=== PATIENT | male | born 1940 | race Caucasian/White ===

== ENCOUNTER → 2016-10-22 | Outpatient (REF) | payer MEDICARE ==
[~2016-10-22] MED LIST: /PANT40TA PO; ASPI81TA83 PO; LISI10TA4 PO; METOPROLOL TARTRATE PO; MULTIVIT PO; RANI150C PO; SIMV40TA2 PO
[2016-10-22 16:14] LABS: ALBUMIN 3.9 GM/DL (3.2-5.2); ALBUMIN/GLOBULIN RATIO 1.08 (1.00-1.93); BILIRUBIN,TOTAL 0.3 MG/DL (0.2-1.0); CALCIUM LEVEL 9.2 MG/DL (8.8-10.2); CREATININE FOR GFR 1.86 MG/DL (0.70-1.30); GLOMERULAR FILTRATION RATE 37.7 (>42); POTASSIUM SERUM 4.7 MEQ/L (3.5-5.1); TOTAL PROTEIN 7.5 GM/DL (6.4-8.2)
== END ==
LOC: M SFHCLACO 15:01
PROVIDERS: ATTEND Physician Assistant
DX: E11.9 Type 2 diabetes mellitus without complications (principal); I10 Essential (primary) hypertension; E78.2 Mixed hyperlipidemia

== ENCOUNTER → 2017-02-02 | Outpatient (REF) | payer MEDICARE ==
[2017-02-02 15:22] LABS: ALBUMIN 3.9 GM/DL (3.2-5.2); ALBUMIN/GLOBULIN RATIO 1.15 (1.00-1.93); BILIRUBIN,TOTAL 0.5 MG/DL (0.2-1.0); CALCIUM LEVEL 9.2 MG/DL (8.8-10.2); CREATININE FOR GFR 1.73 MG/DL (0.70-1.30); POTASSIUM SERUM 4.9 MEQ/L (3.5-5.1); TOTAL PROTEIN 7.3 GM/DL (6.4-8.2)
== END ==
LOC: M SFHCLACO 07:50
PROVIDERS: ATTEND Physician Assistant
DX: E78.2 Mixed hyperlipidemia (principal); E55.9 Vitamin D deficiency, unspecified; E11.22 Type 2 diabetes mellitus with diabetic chronic kidney disease; I12.9 Hypertensive chronic kidney disease with stage 1 through stage 4 chronic kidney disease, or unspecified chronic kidney disease; N18.3 Chronic kidney disease, stage 3 (moderate)

== ENCOUNTER → 2017-05-04 | Outpatient (REF) | payer MEDICARE ==
[~2017-05-04] MED LIST changes: +CIPR-249 PO; +DIGO0.12 PO; +FENO150C PO; +FLAG500T PO; +GLIM4TAB PO; +SITA50TAB PO
[2017-05-04 16:06] LABS: ALBUMIN 3.7 GM/DL (3.2-5.2); ALBUMIN/GLOBULIN RATIO 1.06 (1.00-1.93); BILIRUBIN,TOTAL 0.4 MG/DL (0.2-1.0); CALCIUM LEVEL 9.5 MG/DL (8.8-10.2); CREATININE FOR GFR 1.78 MG/DL (0.70-1.30); GLOMERULAR FILTRATION RATE 39.7 (>42); TOTAL PROTEIN 7.2 GM/DL (6.4-8.2)
== END ==
LOC: M SFHCLACO 07:47
PROVIDERS: ATTEND Physician Assistant
DX: I10 Essential (primary) hypertension (principal); E78.2 Mixed hyperlipidemia; E11.22 Type 2 diabetes mellitus with diabetic chronic kidney disease; E55.9 Vitamin D deficiency, unspecified

== ENCOUNTER → 2017-06-28 | Outpatient (CLI) | payer MEDICARE ==
--- NOTE | 2017-06-28 10:56 | REP ---
Supine abdomen two views: Comparison is 02/01/2014. The bowel gas pattern is normal. There are calcifications inferiorly in the pelvis on the left, unchanged, likely phleboliths. Skeletal structures and soft tissues are unremarkable. Impression: Normal bowel gas pattern. Signed by Neo Field MD 06/28/2017 10:48 A
[2017-06-28 13:08] LABS: WHITE BLOOD COUNT 11.6 10^3/uL (4.0-10.0)
[2017-06-28 13:09] LABS: BASO % 0.1 % (0.0-1.0); EOS # 0.1 10^3/uL (0.0-0.50); EOS % 0.6 % (0.0-3.0); IMMATURE GRANULOCYTE % 0.5 % (0-0); LYMPH # 2.4 10^3/uL (1.5-4.5); LYMPH % 20.8 % (24.0-44.0); MEAN CORPUSCULAR HEMOGLOBIN 31.7 pg (27.0-33.0); MEAN CORPUSCULAR HGB CONC 32.3 g/dl (32.0-36.5); MEAN CORPUSCULAR VOLUME 98.2 fl (80.0-96.0); MONO # 1.2 10^3/uL (0.0-0.8); MONO % 9.9 % (0.0-5.0); NEUTROPHILS # 7.9 10^3/uL (1.8-7.7); NEUTROPHILS % 68.1 % (36.0-66.0); PLATELET COUNT, AUTOMATED 234 10^3/uL (150-450); RED CELL DISTRIBUTION WIDTH 14.4 % (11.5-14.5)
[2017-06-28 13:24] LABS: ALBUMIN 3.3 GM/DL (3.2-5.2); ALBUMIN/GLOBULIN RATIO 0.92 (1.00-1.93); BILIRUBIN,TOTAL 0.6 MG/DL (0.2-1.0); CREATININE FOR GFR 1.83 MG/DL (0.70-1.30); GLOMERULAR FILTRATION RATE 38.3 (>42); POTASSIUM SERUM 4.5 MEQ/L (3.5-5.1); TOTAL PROTEIN 6.9 GM/DL (6.4-8.2)
== END ==
LOC: M ADAMS 10:18
PROVIDERS: ATTEND Physician Assistant
DX: R10.30 Lower abdominal pain, unspecified (principal)

== ENCOUNTER → 2017-08-03 | Outpatient (REF) | payer MEDICARE ==
[2017-08-03 15:03] LABS: ALBUMIN 3.6 GM/DL (3.2-5.2); ALBUMIN/GLOBULIN RATIO 1.03 (1.00-1.93); BILIRUBIN,TOTAL 0.3 MG/DL (0.2-1.0); CALCIUM LEVEL 9.2 MG/DL (8.8-10.2); CREATININE FOR GFR 1.64 MG/DL (0.70-1.30); GLOMERULAR FILTRATION RATE 43.5 (>42); TOTAL PROTEIN 7.1 GM/DL (6.4-8.2)
== END ==
LOC: M SFHCLACO 07:48
PROVIDERS: ATTEND Physician Assistant
DX: E11.22 Type 2 diabetes mellitus with diabetic chronic kidney disease (principal); I12.9 Hypertensive chronic kidney disease with stage 1 through stage 4 chronic kidney disease, or unspecified chronic kidney disease; N18.3 Chronic kidney disease, stage 3 (moderate); E78.2 Mixed hyperlipidemia; E55.9 Vitamin D deficiency, unspecified; Z12.5 Encounter for screening for malignant neoplasm of prostate
CPT/HCPCS: 36415; 80053; 80061; 82043; 82306; 83036; G0103

== ENCOUNTER → 2018-02-08 | Outpatient (REF) | payer MEDICARE, MEDICAID ==
[2018-02-08 16:17] LABS: ALBUMIN 3.6 GM/DL (3.2-5.2); ALBUMIN/GLOBULIN RATIO 1.06 (1.00-1.93); ALKALINE PHOSPHATASE 44 U/L (45-117); ALT/SGPT 55 U/L (12-78); ANION GAP 7 MEQ/L (8-16); AST/SGOT 34 U/L (7-37); BILIRUBIN,TOTAL 0.4 MG/DL (0.2-1.0); BLOOD UREA NITROGEN 24 MG/DL (7-18); CARBON DIOXIDE LEVEL 29 MEQ/L (21-32); CHLORIDE LEVEL 104 MEQ/L (98-107); CHOLESTEROL LEVEL 107 MG/DL (<200); CHOLESTEROL RISK RATIO 4.458 (<5); CREATININE FOR GFR 1.62 MG/DL (0.70-1.30); GLOMERULAR FILTRATION RATE 44.1 (>42); GLUCOSE, FASTING 269 MG/DL (70-100); HDL CHOLESTEROL 24 MG/DL (>40); NON-HDL-C 83 MG/DL; POTASSIUM SERUM 4.9 MEQ/L (3.5-5.1); PSA SCREENING 0.59 NG/ML (< 4.0); SODIUM LEVEL 140 MEQ/L (136-145); TRIGLYCERIDES LEVEL 340 MG/DL (<150)
[2018-02-08 16:18] LABS: ESTIMATED AVERAGE GLUCOSE 289 MG/DL (60-110); HEMOGLOBIN A1c 11.7 %
[2018-02-08 16:19] LABS: TOTAL 25(OH) VITAMIN D 30.6 NG/ML (30.0-100.0)
== END ==
LOC: M SFHCLACO 07:48
DX: E78.2 Mixed hyperlipidemia (principal); I12.9 Hypertensive chronic kidney disease with stage 1 through stage 4 chronic kidney disease, or unspecified chronic kidney disease; E55.9 Vitamin D deficiency, unspecified; Z12.5 Encounter for screening for malignant neoplasm of prostate; E11.22 Type 2 diabetes mellitus with diabetic chronic kidney disease; N18.3 Chronic kidney disease, stage 3 (moderate)
CPT/HCPCS: 80053

== ENCOUNTER → 2018-08-12 | Outpatient (REF) | payer MEDICARE, MEDICAID | LOC: M SFHCPLAZ 16:54 | PROVIDERS: ATTEND Dermatology | DX: R21 Rash and other nonspecific skin eruption (principal) | CPT/HCPCS: 11100; 54100; 87529; 87798; 88305; G0463 ==

== ENCOUNTER 2018-10-17 10:21 | Inpatient (IN) | payer MEDICARE, MEDICAID ==
[~2018-10-17] VITALS: Ht 172.7 cm; Wt 93.3 kg
[2018-10-17 11:06] LABS: BASO % 0.4 % (0.0-1.0); EOS # 0.3 10^3/uL (0.0-0.50); EOS % 3.7 % (0.0-3.0); HEMATOCRIT 36.4 % (42.0-52.0); HEMOGLOBIN 11.8 g/dl (13.5-17.5); LYMPH # 3.1 10^3/uL (1.5-4.5); LYMPH % 45.4 % (24.0-44.0); MEAN CORPUSCULAR HEMOGLOBIN 31.9 pg (27.0-33.0); MEAN CORPUSCULAR HGB CONC 32.4 g/dl (32.0-36.5); MEAN CORPUSCULAR VOLUME 98.4 fl (80.0-96.0); MONO # 0.6 10^3/uL (0.0-0.8); NEUTROPHILS # 2.8 10^3/uL (1.8-7.7); NEUTROPHILS % 41.1 % (36.0-66.0); PLATELET COUNT, AUTOMATED 235 10^3/uL (150-450); WHITE BLOOD COUNT 6.8 10^3/uL (4.0-10.0)
[2018-10-17 11:16] LABS: INR 1.08; PROTHROMBIN TIME 14.2 SECONDS (12.1-14.4)
[2018-10-17 11:37] LABS: ALBUMIN 3.6 GM/DL (3.2-5.2); ALT/SGPT 35 U/L (12-78); BILIRUBIN,DIRECT < 0.1 MG/DL (0.0-0.2); BILIRUBIN,TOTAL 0.3 MG/DL (0.2-1.0); BLOOD UREA NITROGEN 32 MG/DL (7-18); CALCIUM LEVEL 9.1 MG/DL (8.8-10.2); CARBON DIOXIDE LEVEL 27 MEQ/L (21-32); CHLORIDE LEVEL 106 MEQ/L (98-107); GLOMERULAR FILTRATION RATE 41.6 (>42); GLUCOSE, FASTING 127 MG/DL (70-100); LIPASE 118 U/L (73-393); POTASSIUM SERUM 4.6 MEQ/L (3.5-5.1); SODIUM LEVEL 139 MEQ/L (136-145); TOTAL PROTEIN 7.4 GM/DL (6.4-8.2)
[2018-10-17] MEDS ORDERED: ASPI1TAB15 PO (11:58)
[2018-10-17] MEDS ORDERED: JANU100T PO (11:58)
[2018-10-17] MEDS ORDERED: FISH1000 PO (11:58)
[2018-10-17] MEDS ORDERED: TRES1INJ SC (11:58)
[2018-10-17] MEDS ORDERED: METO1TAB33 PO (11:58)
[2018-10-17] MEDS ORDERED: FENO160T10 PO (11:58)
[2018-10-17] MEDS ORDERED: ATOR40TA75 PO (11:58)
[2018-10-17] MEDS ORDERED: LISI10TA4 PO (11:58)
[2018-10-17] MEDS ORDERED: PLAV1TAB2 PO (11:58)
[2018-10-17] MEDS ORDERED: RANI150T PO (11:58)
[2018-10-17] MEDS ORDERED: NITR4TASL SL (11:58)
[2018-10-17] MEDS ORDERED: VITMTA PO (11:58)
[2018-10-17] MEDS ORDERED: PANT40TA3 PO (11:58)
[2018-10-17] MEDS ORDERED: NS 1,000 ML IV SCH (15:15)
[2018-10-17] MEDS ORDERED: GLUCOSE 4 GM CHEW TABLET PO PRN (15:30)
[2018-10-17] MEDS ORDERED: DEXTROSE 50% 50 ML SYRINGE IV PRN (15:30)
[2018-10-17] MEDS ORDERED: GLUCAGON FOR INJ 1 MG VIAL (J1610) SC PRN (15:30)
[2018-10-17] MEDS: PANTOPRAZOLE 40MG INJ (PROTONIX) (C9113) IV SCH (15:52)
--- NOTE | 2018-10-17 16:05 | REP ---
CT of the abdomen and pelvis without IV or bowel contrast: Comparison is 06/30/2017. The studies performed for rectal bleeding and lower abdominal pain. The visualized lower lung mejia reveal mild parenchymal scarring in the deep posterior sulci bilaterally, unchanged, but otherwise unremarkable. The unenhanced hepatic parenchyma is unremarkable. The hepato steatosis identified previously is no longer present. The gallbladder, pancreas, spleen and adrenals are unremarkable. The unenhanced kidneys are unremarkable. The abdominal aorta is unremarkable except for calcified atheroma. There is no retroperitoneal adenopathy or mass. There is no bowel distension or obstruction. There are numerous diverticula in the descending colon and sigmoid colon, as previously. There is no pericolonic inflammation or abscess to suggest acute diverticulitis. Pelvis: The appendix is unremarkable. There is no adenopathy or ascites. The bladder is unremarkable. Impression: Diverticulosis without diverticulitis. The previous hepato steatosis is no longer present. No adenopathy, ascites or mass. Electronically Signed by Neo Field MD 10/17/2018 03:56 P
[2018-10-17 17:04] VITALS: BP 132/60
[2018-10-17] MEDS: HumaLOG INSULIN (NovoLOG) PER UNIT SC SCH (17:20)
[2018-10-17] MEDS: D5W/0.45% SODIUM CHLORIDE 1,000 ML IV SCH (17:33)
[2018-10-17] MEDS ORDERED: DIGOXIN 0.125 MG TAB PO SCH (18:30)
--- NOTE | 2018-10-17 19:06 | HPE ---
DATE OF ADMISSION: 10/17/[address] Tracy Hernandez. PRIMARY CARE PROVIDER: Avelina Keith GASTROENTEROLOGY: Dr. Mae SCHOOL NURSE: Dr. Giles in [place] CHIEF COMPLAINT: "Bloody stools." HISTORY OF THE PRESENT ILLNESS: Mr. Perez is a 78-year-old male who presents to the emergency room (ER) with his and granddaughter due to bright red blood per rectum associated with low abdominal pain. For the past week, he states he felt the urge to have a bowel movement but then along with the stool noticed bright red blood in the toilet. He denies any clots. Denies a previous history of any similar episodes. Denies recent changes in medications, sick contacts, recent travel, or recent illnesses. Of note, he is on aspirin and Plavix due to four cardiac stents placed in August of 2017 at [facility]. He states he did have a colonoscopy in 2014 that found diverticulosis and premalignant polyp, and hemorrhoids. He denies any other symptoms. No lightheadedness, shortness of breath, dizziness. Denies any black tarry stools or weight loss. No nausea, vomiting. In the ER, per report, he was guaiac positive and was thereafter admitted for bright red blood per rectum. PAST MEDICAL HISTORY: Hypertension. Coronary artery disease, status post four stents August 2017 at [facility] and triple bypass 20 years ago. Hyperlipidemia. Insulin-dependent diabetes mellitus, type 2. Gastroesophageal reflux disease (GERD). Positive history of Helicobacter (H) pylori. Psoriasis. Chronic anemia. ALLERGIES: NAPROXEN causing nausea, vomiting. SURGICAL HISTORY: Coronary artery bypass graft (CABG) with triple bypass in May of 2000. Colonoscopy in 2011. Four cardiac stents August of 2017. FAMILY HISTORY: Mother of heart disease. Father had heart disease. Both parents had hypertension, diabetes mellitus. Sister had a stroke. There is a family member also with uterine cancer. SOCIAL HISTORY: Quit smoking about 6 years ago. Smoked for 3-4 years. Alcohol - drinks beer occasionally. Illicit substances - denies. HOME MEDICATIONS: - aspirin 81 mg - atorvastatin 40 mg by mouth nightly - Plavix 75 mg by mouth daily - digoxin 125 mcg by mouth nightly - fenofibrate 160 mg by mouth nightly - fish oil 4000 mg by mouth nightly - glimepiride 4 mg by mouth daily - lisinopril 10 mg by mouth daily - metoprolol succinate ER 150 mg by mouth daily - multivitamin one tablet by mouth daily - nitroglycerin 0.4 mg SL nitro as needed - Protonix 40 mg by mouth daily - ranitidine one tablet by mouth twice a day - Januvia 50 mg by mouth daily - Tresiba 24 units subcu daily REVIEW OF SYSTEMS: GENERAL: Denies fever, chills, weight loss, night sweats. HEENT: Denies any headache, blurred vision, eye pain, ear pain, dysphagia, rhinorrhea. CARDIAC: Denies chest pain, palpitations, or chest tightness. LUNGS: Denies any shortness of breath, coughing, wheezing, or sputum. GASTROINTESTINAL(GI): Denies nausea, vomiting, or constipation or diarrhea. Admits to lower abdominal pain as well as bright red blood per rectum for the past week. NEUROLOGIC: Denies any new weaknesses or paresthesias. MUSCULOSKELETAL: Denies any decreased strength. SKIN: Denies any new skin rashes or lesions. PHYSICAL EXAMINATION: VITAL SIGNS: Temperature 98.9, pulse 51, respirations 19, blood pressure 132/60 with a mean arterial pressure (MAP) of 84, pulse oximetry 97% on room air. GENERAL: Resting comfortably in bed. No acute distress. Alert and oriented times three. Pleasantly conversant. HEENT: Normocephalic, atraumatic. Moist mucous membranes. Anicteric sclerae. No appreciable paleness in the conjunctivae. NECK: Supple. No appreciable jugular venous distention (JVD). CARDIAC: Regular rate and rhythm. Bradycardic on exam. Regular rhythm. No appreciable murmurs. Normal S1 and S2. LUNGS: Clear to auscultation bilaterally in all mejia. No wheezing, rhonchi, or rales. Equal chest rise bilaterally. ABDOMEN: Soft, nondistended. There is mild tenderness to bilateral lower quadrants. Normoactive bowel sounds throughout. No organomegaly or masses. Obese. EXTREMITIES: 2+ radial pulses bilaterally and 2+ dorsalis pedis pulses bilaterally. No edema. MUSCULOSKELETAL: Able to move all extremities. NEUROLOGIC: No appreciable deficits. SKIN: No visible lesions. LABORATORY: WBC 6.8, hemoglobin and hematocrit 11.8 and 36.4, platelets 235. Sodium 139, potassium 4.6, BUN and creatinine [address] abdomen and pelvis: Diverticulosis without diverticulitis. Previous hepatosteatosis is no longer present. No adenopathy, ascites or mass. IMPRESSION AND PLAN: 1. Bright red blood per rectum. Likely lower GI bleed. Differential includes diverticular bleed versus arteriovenous malformation (AVM) versus polyps versus malignancy versus peptic ulcer disease. Currently the patient's hemoglobin and hematocrit appear to be around baseline with a hemoglobin ranging from 11 to 12 from previous records. He is asymptomatic. We will make him nothing by mouth (n.p.o.) with Protonix IV and IV fluids while he is nothing by mouth. Hold aspirin and Plavix. CT of the abdomen and pelvis does not reveal any masses or lesions. We will recheck his hemoglobin and hematocrit every 6 hours. Per ER report, he is guaiac positive in the ER. Given that there is no GI manager organizational, surgeon, Dr. Feliciano, has been consulted with plans to scope possibly tomorrow. 2. For the remainder of his chronic medical conditions, we will continue his regular home medications besides replacing his diabetes medications with insulin sliding scale inpatient. Of note, it does appears he does have chronic kidney disease stage III as well. His current BUN and creatinine appear to be around his baseline creatinine of 1.7 to 1.8. After his colonoscopy, consider starting iron supplement or an epo stimulating agent. 3. Deep vein thrombosis (DVT) prophylaxis. Thromboembolism deterrents (TEDs) and sequential compression device (SCDs). Hold anticoagulation given his acute bleed. DISPOSITION: Will admit to the hospitalist service. Check hemoglobin and hematocrit every 6 hours. To be seen by surgery for possible colonoscopy. My faculty preceptor for this patient encounter was physically present during the encounter and was fully available. All aspects of the patient interview, examination, medical decision making process, and medical care plan development were reviewed and approved by the faculty preceptor. The faculty preceptor is aware and concurs with the plan as stated in the body of this note and will attest to such by his/her cosignature. DAVE
[2018-10-17 19:57] LABS: HEMATOCRIT 33.1 % (42.0-52.0); HEMOGLOBIN 10.8 g/dl (13.5-17.5)
[2018-10-17 20:00] VITALS: BP 120/63
[2018-10-17] MEDS: ATORVASTATIN 20 MG TAB PO SCH (20:18)
[2018-10-18] MEDS: D5W/0.45% SODIUM CHLORIDE 1,000 ML IV SCH ×2 (03:30→16:32)
[2018-10-18 04:00] VITALS: BP 116/56
[2018-10-18] MEDS ORDERED: GOLYTELY SOLN 4000 ML BTL PO ONE (05:00)
[2018-10-18] MEDS: HumaLOG INSULIN (NovoLOG) PER UNIT SC SCH ×5 (05:36→19:46)
[2018-10-18 06:16] LABS: HEMATOCRIT 35.1 % (42.0-52.0); HEMOGLOBIN 11.4 g/dl (13.5-17.5); MEAN CORPUSCULAR HEMOGLOBIN 31.7 pg (27.0-33.0); MEAN CORPUSCULAR HGB CONC 32.5 g/dl (32.0-36.5); MEAN CORPUSCULAR VOLUME 97.5 fl (80.0-96.0); PLATELET COUNT, AUTOMATED 202 10^3/uL (150-450); WHITE BLOOD COUNT 6.9 10^3/uL (4.0-10.0)
[2018-10-18 06:35] LABS: CALCIUM LEVEL 8.4 MG/DL (8.8-10.2); CREATININE FOR GFR 1.52 MG/DL (0.70-1.30); GLOMERULAR FILTRATION RATE 47.3 (>42); POTASSIUM SERUM 4.3 MEQ/L (3.5-5.1)
[2018-10-18 08:00] VITALS: BP 138/68
[2018-10-18] MEDS ORDERED: DIGOXIN 0.125 MG TAB PO SCH (09:00)
[2018-10-18] MEDS: METOPROLOL SUCC (TopROL XL) 50MG **XL** TAB PO SCH (09:27)
[2018-10-18] MEDS: MULTIVITAMINS/MINERALS THERAP 1 TAB PO SCH (09:33)
[2018-10-18] MEDS: LISINOPRIL 10 MG TAB PO SCH (09:33)
[2018-10-18] MEDS: PANTOPRAZOLE 40MG INJ (PROTONIX) (C9113) IV SCH (09:33)
[2018-10-18 10:19] LABS: DIGOXIN LEVEL 0.6 NG/ML (0.5-2.0)
[2018-10-18] MEDS: DIGOXIN 0.125 MG TAB PO SCH (11:04)
[2018-10-18 12:00] VITALS: BP 122/68
[2018-10-18 12:38] LABS: HEMATOCRIT 33.9 % (42.0-52.0); HEMOGLOBIN 11.1 g/dl (13.5-17.5)
[2018-10-18] MEDS ORDERED: ePHEDrine SULFATE 25 MG/5 ML(5MG/ML) SYRINGE As Ordered ONE (15:12)
[2018-10-18] MEDS ORDERED: LIDOCAINE 2% INJ 100 MG/5 ML SDV (FOR ANES.) As Ordered ONE (15:13)
[2018-10-18] MEDS ORDERED: PROPOFOL 200 MG/20 ML VIAL As Ordered ONE (15:13)
[2018-10-18] MEDS ORDERED: GLYCOPYRROLATE INJ 0.2 MG/ML 2 ML VIAL As Ordered ONE (15:15)
--- NOTE | 2018-10-18 15:57 | ROOR ---
Patient Name: Bam Perez Procedure Date: 10/18/2018 2:47 PM Date of : 1940 Age: 78 Room: [facility] Gender: Male Note Status: Finalized Procedure: Colonoscopy Indications: Rectal bleeding Providers: Christiano Feliciano MD Referring MD: TEJAS Cochran PA-C Requesting Provider: Medicines: Monitored Anesthesia Care Complications: No immediate complications. Procedure: Pre-Anesthesia Assessment: - Prior to the procedure, a History and Physical was performed, and patient medications and allergies were reviewed. The patient is competent. The risks and benefits of the procedure and the sedation options and risks were discussed with the patient. All questions were answered and informed consent was obtained. Patient identification and proposed procedure were verified by the physician, the nurse and the software licensing specialist in the procedure room. Mental Status Examination: alert and oriented. CV Examination: regular rate and rhythm. Prophylactic Antibiotics: The patient does not require prophylactic antibiotics. Prior Anticoagulants: The patient has taken no previous anticoagulant or antiplatelet agents. ASA Grade Assessment: III - A patient with severe systemic disease. After reviewing the risks and benefits, the patient was deemed in satisfactory condition to undergo the procedure. The anesthesia plan was to use monitored anesthesia care (MAC). Immediately prior to administration of medications, the patient was re-assessed for adequacy to receive sedatives. The heart rate, respiratory rate, oxygen saturations, blood pressure, adequacy of pulmonary ventilation, and response to care were monitored throughout the procedure. The physical status of the patient was re-assessed after the procedure. The Colonoscope was introduced through the anus and advanced to the terminal ileum. The colonoscopy was performed without difficulty. The patient tolerated the procedure well. The quality of the bowel preparation was excellent. Findings: The perianal and digital rectal examinations were normal. A 5 mm polyp was found in the transverse colon. The polyp was sessile. The polyp was removed with a hot snare. Resection and retrieval were complete. Estimated blood loss: none. A 4 mm polyp was found in the descending colon. The polyp was sessile. The polyp was removed with a hot snare. Resection and retrieval were complete. Estimated blood loss: none. Scattered medium-mouthed diverticula were found in the descending colon. Many large-mouthed diverticula were found in the sigmoid colon. Non-bleeding internal hemorrhoids were found. There was no blood in the colon and no obvious source for recent bleeding. Impression: - One 5 mm polyp in the transverse colon, removed with a hot snare. Resected and retrieved. - One 4 mm polyp in the descending colon, removed with a hot snare. Resected and retrieved. - Diverticulosis in the descending colon. - Diverticulosis in the sigmoid colon. - Non-bleeding internal hemorrhoids. Recommendation: - [facility]. - Resume regular diet today. - Continue present medications. - Await pathology results. Christiano Feliciano MD Christiano Feliciano MD 10/18/2018 3:56:57 PM This report has been signed electronically. Number of Addenda: 0 Note Initiated On: 10/18/2018 2:47 PM Estimated Blood Loss: Estimated blood loss: none.
[2018-10-18 16:20] VITALS: BP 148/67
--- NOTE | 2018-10-18 17:04 | IPNPDOC ---
Text Note Date of Service The patient was seen on 10/18/18. NOTE Subjective: Patient is a 78-year-old male with a PMHx of CAD s/p Stent (08/2017) s/p CABG, HTN, DLP, IDDM2, Hx of H. pylori, Chronic anemia, Psoriasis, and GERD who presented to the ER with BRBPR. Patient was on ASA / Plavix for a stent placement on 08/2017. This has been placed on hold since admission. Patient was admitted to the hospitalist service with general surgery on consultation. Patient was seen and examined at the bedside. Currently he is completing a [place] bottle. He denies any chest pain. She is rather palpitations. Still expressing some rectal bleeding. Denies any bone pain, the patient diarrhea, or nausea and vomiting. Objective: Vitals (See below) General: Lying in bed, no acute distress, comfortable, AAOx3 HEENT: NC, AT CVS: RRR, +S1S2 Lungs: Fair air entry b/l, -w/r/r Abdomen: Soft, ND, NT Extremities: - Edema, - Calf tenderness Assessment and plan: BRBPR - likely 2/2 lower GI bleed - likely 2/2 diverticulosis - Clinically remains stable, does present some rectal bleeding - Physical without any abdominal tenderness - Hemoglobin remains stable without any transfusions - CT abdomen / pelvis 10/17: Diverticulosis without diverticulitis. The previous hepato steatosis is no longer present. No adenopathy, ascites or mass. - Will continue to follow hemoglobin every 6 hours - s/p Colonoscopy 10/[address] Feliciano - pathology pending CAD s/p Stent (08/2017) s/p CABG - c/w Digoxin and Atorvastatin HTN - BP well controlled - c/w Lisinopril and Metoprolol DLP - c/w Atorvastatin IDDM2 - c/w ISS Psoriasis GERD / Hx of H. pylori - c/w Protonix DVT prophylaxis - c/w SCDs VS,Fishbone, I+O VS, Fishbone, I+O Laboratory Tests 10/17/18 19:39 10/18/18 06:01 Red Blood Count 3.60 L, Mean Corpuscular Volume 97.5 H, Mean Corpuscular Hemoglobin 31.7, Mean Corpuscular Hemoglobin Concent 32.5, Red Cell Distribution Width 13.2, Calcium Level 8.4 L 10/18/18 12:08 Vital Signs Date Time Temp Pulse Resp B/P (MAP) Pulse Ox O2 Delivery O2 Flow Rate FiO2 10/18/18 16:20 96.7 65 18 148/67 (94) 98 10/18/18 16:05 Room Air I&O- Last 24 Hours up to 6 AM 10/18/18 06:00 Intake Total 150 ml Balance 150 ml SABRINA MUELLER MD Oct 18, 2018 17:04
[2018-10-18 18:02] LABS: HEMOGLOBIN 11.3 g/dl (13.5-17.5)
--- NOTE | 2018-10-18 18:48 | ECGEPIP ---
Stationary ECG Study [facility] - ED Test Date: 2018-10-17 Pat Name: DAMIAN SILVA Department: Room: - Gender: M [employer]: : 1940 Requested By: Sandra Benitez Order Number: [id number] Reading MD: Sandra Benitez Measurements Intervals [place] Rate: 55 P: -5 MA: 168 QRS: 1 QRSD: 143 T: 0 QT: 387 QTc: 370 Interpretive Statements SINUS BRADYCARDIA INTRAVENTRICULAR CONDUCTION DELAY INFERIOR MYOCARDIAL INFARCTION, PROBABLY OLD SIMILAR 06/30/17 Electronically Signed On 10-18-2018 18:48:35 EST by Sandra Benitez
[2018-10-18] MEDS: ATORVASTATIN 20 MG TAB PO SCH (19:44)
[2018-10-18 20:00] VITALS: BP 127/58
[2018-10-18] MEDS ORDERED: RAMELTEON 8 MG TAB (ROZEREM) PO SCH (21:00)
[2018-10-18 23:59] VITALS: BP 111/53
[2018-10-19] VITALS (7 sets, daily range): BP systolic 114–145; BP diastolic 52–98
[2018-10-19 06:12] LABS: HEMATOCRIT 34.1 % (42.0-52.0); HEMOGLOBIN 11.2 g/dl (13.5-17.5); MEAN CORPUSCULAR HGB CONC 32.8 g/dl (32.0-36.5); MEAN CORPUSCULAR VOLUME 97.4 fl (80.0-96.0); PLATELET COUNT, AUTOMATED 195 10^3/uL (150-450); WHITE BLOOD COUNT 8.1 10^3/uL (4.0-10.0)
[2018-10-19 06:38] LABS: CALCIUM LEVEL 8.5 MG/DL (8.8-10.2); CREATININE FOR GFR 1.5 MG/DL (0.70-1.30); GLOMERULAR FILTRATION RATE 48.1 (>42); POTASSIUM SERUM 4.3 MEQ/L (3.5-5.1)
[2018-10-19] MEDS: HumaLOG INSULIN (NovoLOG) PER UNIT SC SCH ×4 (07:30→21:00)
[2018-10-19] MEDS: DIGOXIN 0.125 MG TAB PO SCH (08:22)
[2018-10-19] MEDS: LISINOPRIL 10 MG TAB PO SCH (08:23)
[2018-10-19] MEDS: PANTOPRAZOLE 40MG INJ (PROTONIX) (C9113) IV SCH (08:23)
[2018-10-19] MEDS: METOPROLOL SUCC (TopROL XL) 50MG **XL** TAB PO SCH (08:23)
[2018-10-19] MEDS: MULTIVITAMINS/MINERALS THERAP 1 TAB PO SCH (08:23)
--- NOTE | 2018-10-19 10:29 | CR ---
DATE OF CONSULTATION: 10/17/2018 REASON FOR CONSULTATION: Lower gastrointestinal bleed. HISTORY OF PRESENT ILLNESS The patient is a 78-year-old man admitted by the hospitalist service on October 17 with a chief complaint of bloody stool. He presented to the emergency department reporting that for about a week he had been having some blood noted in his stool. This was bright red in color. He has not had any prior similar episode. He has had colonoscopies most recently in 2014. He has had several polyps resected and has known diverticulosis and internal hemorrhoids. The patient denied any dizziness or lightheadedness. He has not had any significant abdominal pain by his report. He has not noticed any particular change his bowel habits otherwise. 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 ALLERGIES: The patient apparently has had nausea and vomiting after NAPROXEN. MEDICATIONS: The patient's current medications include: - aspirin 81 mg daily - atorvastatin 40 mg p.o. at bedtime - clopidogrel 75 mg p.o. daily - digoxin 125 mcg p.o. nightly at bedtime - fenofibrate 160 mg p.o. q.h.s. - fish oil 4000 mg p.o. q.h.s. - glimepiride 4 mg p.o. daily - lisinopril 10 mg p.o. daily - metoprolol succinate 150 mg p.o. daily - multivitamin daily - nitroglycerin 0.4 mg sublingually p.r.n. chest pain - pantoprazole 40 mg p.o. daily - ranitidine 150 mg p.o. twice daily - Januvia 50 mg p.o. daily - Tresiba Flex Touch 24 units subcutaneous daily SURGICAL HISTORY: The patient has undergone a coronary artery bypass grafting in 2000. He had a colonoscopy in 2011 and again in 2014. He has had cardiac stents placed in August 2017. MEDICAL HISTORY: Medical history is significant for his coronary artery disease status post bypass and stenting. He has a history of hypertension and hyperlipidemia. He has diabetes mellitus type 2. He has a history of gastroesophageal reflux disease. He has psoriasis and reportedly has a history of chronic anemia. FAMILY HISTORY: Reveals no family history of colorectal cancer. SOCIAL HISTORY: The patient had been a smoker but is now quit for about 6 years. He has an occasional beer. REVIEW OF SYSTEMS: The patient denies any recent chest pain or palpitations. He denies shortness of breath, cough, wheezing or sputum production. He has had no history of deep vein thrombosis (DVT) or pulmonary embolus. Remainder of the review of systems is unrevealing. PHYSICAL EXAMINATION: Physical exam reveals a pleasant, older appearing man lying quietly in bed. He is alert, oriented and cooperative. Heart exam shows a regular rhythm. The lungs are clear. The abdomen is soft and nontender without appreciable mass. Rectal exam is deferred for now. LABORATORY STUDIES: Laboratory studies include a CBC with a hemoglobin of 12, hematocrit of 36 and platelet count of 235,000. White count is 7. Chemistry profile shows normal electrolytes with BUN of 32, creatinine 1.7 and a glucose of 127. Liver function tests are unremarkable. PT and INR are normal. He had a CT scan of his abdomen and pelvis for unclear reasons. This was read as showing some diverticulosis, diverticulitis and no other apparent significant findings. IMPRESSION: 1. Red rectal bleeding of uncertain source. The patient has known diverticulosis and a history of polyps and internal hemorrhoids. PLAN: The patient was counseled for possible colonoscopy. We will try adding him onto the schedule for a colonoscopy on the afternoon of October 18. He will start a bowel prep in the morning but can take some clear liquids overnight.
[2018-10-19] MEDS: ASPIRIN 81 MG ENTERIC TAB PO SCH (12:02)
[2018-10-19] MEDS: CLOPIDOGREL 75 MG TAB PO SCH (12:02)
--- NOTE | 2018-10-19 13:37 | IPNPDOC ---
Text Note Date of Service The patient was seen on 10/19/18. NOTE Subjective: Patient is a 78-year-old male with a PMHx of CAD s/p Stent (08/2017) s/p CABG, HTN, DLP, IDDM2, Hx of H. pylori, Chronic anemia, Psoriasis, and GERD who presented to the ER with BRBPR. Patient was on ASA / Plavix for a stent placement on 08/2017. This has been placed on hold since admission. Patient was admitted to the hospitalist service with general surgery on consultation. Patient was seen and examined at the bedside. Currently notes that he is expressing or rectal bleeding. Denies any chest pain, shortness of breath or palpitations. Denies nausea, vomiting, abdominal pain, constipation or diarrhea. Objective: Vitals (See below) General: Lying in bed, no acute distress, comfortable, AAOx3 HEENT: NC, AT CVS: RRR, +S1S2 Lungs: Fair air entry b/l, auscultation is without any wheezing, rales or rhonchi Abdomen: Soft, ND, non-tender Extremities: No evidence of edema, - Calf tenderness Assessment and plan: BRBPR - likely 2/2 lower GI bleed - likely 2/2 hemorrhoids, possibly 2/2 diverticulosis - Clinically remains stable, does present some rectal bleeding - Physical without any abdominal tenderness - Hemoglobin remains stable without any transfusions - CT abdomen / pelvis 10/17: Diverticulosis without diverticulitis. The previous hepato steatosis is no longer present. No adenopathy, ascites or mass. - s/p Colonoscopy 10/[address] Feliciano - pathology pending - Will resume ASA and Plavix - Will monitor for blood loss, anticipate discharge in 24 hours CAD s/p Stent (08/2017) s/p CABG - c/w Digoxin and Atorvastatin HTN - BP well controlled - c/w Lisinopril and Metoprolol DLP - c/w Atorvastatin - Will resume ASA and Plavix IDDM2 - c/w ISS Psoriasis GERD / Hx of H. pylori - c/w Protonix DVT prophylaxis - c/w SCDs Disposition: - Discharge within 24 hours VS,Fishbone, I+O VS, Fishbone, I+O Laboratory Tests 10/18/18 17:54 10/19/18 05:58 Red Blood Count 3.50 L, Mean Corpuscular Volume 97.4 H, Mean Corpuscular Hemoglobin 32.0, Mean Corpuscular Hemoglobin Concent 32.8, Red Cell Distribution Width 13.2, Calcium Level 8.5 L Vital Signs Date Time Temp Pulse Resp B/P (MAP) Pulse Ox O2 Delivery O2 Flow Rate FiO2 10/19/18 12:00 97.6 67 18 135/63 (87) 97 10/18/18 16:05 Room Air I&O- Last 24 Hours up to 6 AM 10/19/18 06:00 Intake Total 1740 ml Output Total 850 ml Balance 890 ml SABRINA MUELLER MD Oct 19, 2018 13:37
[2018-10-19] MEDS: ATORVASTATIN 20 MG TAB PO SCH (20:17)
[2018-10-20 04:00] VITALS: BP 118/59
[2018-10-20 06:06] LABS: HEMATOCRIT 32.6 % (42.0-52.0); MEAN CORPUSCULAR HEMOGLOBIN 31.9 pg (27.0-33.0); MEAN CORPUSCULAR HGB CONC 33.7 g/dl (32.0-36.5); MEAN CORPUSCULAR VOLUME 94.5 fl (80.0-96.0); PLATELET COUNT, AUTOMATED 198 10^3/uL (150-450); RED BLOOD COUNT 3.45 10^6/uL (4.30-6.10); WHITE BLOOD COUNT 6.9 10^3/uL (4.0-10.0)
[2018-10-20 06:31] LABS: CALCIUM LEVEL 8.3 MG/DL (8.8-10.2); CREATININE FOR GFR 1.52 MG/DL (0.70-1.30); GLOMERULAR FILTRATION RATE 47.3 (>42); POTASSIUM SERUM 4.4 MEQ/L (3.5-5.1)
[2018-10-20 08:00] VITALS: BP 134/60
[2018-10-20] MEDS: PANTOPRAZOLE 40MG INJ (PROTONIX) (C9113) IV SCH (09:28)
[2018-10-20] MEDS: HumaLOG INSULIN (NovoLOG) PER UNIT SC SCH (09:28)
[2018-10-20] MEDS: METOPROLOL SUCC (TopROL XL) 50MG **XL** TAB PO SCH (09:33)
[2018-10-20 09:34] VITALS: BP 134/60
[2018-10-20] MEDS: LISINOPRIL 10 MG TAB PO SCH (09:34)
[2018-10-20] MEDS: ASPIRIN 81 MG ENTERIC TAB PO SCH (09:34)
[2018-10-20] MEDS: CLOPIDOGREL 75 MG TAB PO SCH (09:34)
[2018-10-20] MEDS: MULTIVITAMINS/MINERALS THERAP 1 TAB PO SCH (09:36)
[2018-10-20] MEDS: DIGOXIN 0.125 MG TAB PO SCH (09:37)
--- NOTE | 2018-10-20 14:57 | DS.PDOC ---
Discharge Summary General Date of Admission Oct 17, 2018 at 15:54 Discharge Summary PROCEDURES PERFORMED DURING STAY: [None]. ADMITTING DIAGNOSES / DISCHARGE DIAGNOSES: BRBPR - likely 2/2 lower GI bleed - likely 2/2 hemorrhoids, possibly 2/2 diverticulosis CAD s/p Stent (08/2017) s/p CABG HTN DLP IDDM2 Psoriasis GERD / Hx of H. pylori DVT prophylaxis COMPLICATIONS/CHIEF COMPLAINT: Bright red bleeding per rectum HISTORY OF PRESENT ILLNESS: Patient is a 78-year-old male with a PMHx of CAD s/p Stent (08/2017) s/p CABG, HTN, DLP, IDDM2, Hx of H. pylori, Chronic anemia, Psoriasis, and GERD who presented to the ER with BRBPR. Patient was on ASA / Plavix for a stent placement on 08/2017. This has been placed on hold since admission. Patient was admitted to the hospitalist service with general surgery on consultation. HOSPITAL COURSE: BRBPR - likely 2/2 lower GI bleed - likely 2/2 hemorrhoids, possibly 2/2 diverticulosis - Clinically remains stable, does present some rectal bleeding - Physical without any abdominal tenderness - Hemoglobin remains stable without any transfusions - CT abdomen / pelvis 10/17: Diverticulosis without diverticulitis. The previous hepato steatosis is no longer present. No adenopathy, ascites or mass. - s/p Colonoscopy 10/[address] Feliciano - pathology pending - Has been resumed on aspirin and Plavix. Has not experienced any further bleeding events - We'll have outpatient follow-up with Dr. Feliciano and primary care provider, Alanna Keith CAD s/p Stent (08/2017) s/p CABG - c/w Digoxin and Atorvastatin HTN - BP well controlled - c/w Lisinopril and Metoprolol DLP - c/w Atorvastatin, ASA and Plavix IDDM2 - c/w ISS Psoriasis GERD / Hx of H. pylori - c/w Protonix DVT prophylaxis - c/w SCDs DISCHARGE MEDICATIONS: Please see below. ALLERGIES: Please see below. PHYSICAL EXAMINATION ON DISCHARGE: Vitals (See below) General: Lying in bed, no acute distress, comfortable, AAOx3 HEENT: NC, AT CVS: RRR, +S1S2 Lungs: Fair air entry b/l, auscultation is without any wheezing, rales or rhonchi Abdomen: Soft, ND, non-tender Extremities: No evidence of edema, - Calf tenderness LABORATORY DATA: Please see below. ACTIVITY: [As tolerated]. DISCHARGE PLAN: Follow-up with Dr. Feliciano and Avelina Keith within the next 7 days Remain compliant with treatment plan and medications Return to the ER if you experience any problems DISPOSITION: Home, Self-Care. DISCHARGE CONDITION: [Stable]. TIME SPENT ON DISCHARGE: Greater than [35] minutes. Vital Signs/I&Os Vital Signs Date Time Temp Pulse Resp B/P (MAP) Pulse Ox O2 Delivery O2 Flow Rate FiO2 10/20/18 09:37 59 10/20/18 09:34 134/60 10/20/18 08:00 97.0 20 97 10/18/18 16:05 Room Air I&O- Last 24 Hours up to 6 AM 10/20/18 06:00 Intake Total 720 ml Output Total 250 ml Balance 470 ml Laboratory Data Labs 24H Laboratory Tests 2 10/19/18 17:13: Bedside Glucose (Misc Panel) 176H 10/19/18 20:24: Bedside Glucose (Misc Panel) 148H 10/20/18 05:46: Nucleated Red Blood Cells % (auto) 0.0, Anion Gap 6L, Glomerular Filtration Rate 47.3, Blood Urea Nitrogen 21H, Creatinine 1.52H, Sodium Level 138, Potassium Level 4.4, Chloride Level 106, Carbon Dioxide Level 26, Calcium Level 8.3L CBC/BMP Laboratory Tests 10/20/18 05:46 Red Blood Count 3.45 L, Mean Corpuscular Volume 94.5, Mean Corpuscular Hemoglobin 31.9, Mean Corpuscular Hemoglobin Concent 33.7, Red Cell Distribution Width 13.2, Calcium Level 8.3 L FSBS Laboratory Tests Test 10/19/18 17:13 10/19/18 20:24 Range/Units Bedside Glucose (Misc Panel) 176 148 83-110 MG/DL Discharge Medications Scheduled (Digoxin) 125 Mcg Tab, 125 MCG PO QHS, (Reported) (Tresiba Flextouch) 200 Unit/Ml Inj, 24 UNIT SC DAILY, (Reported) Aspirin (Aspirin) 81 Mg Tab, 81 MG PO DAILY, (Reported) Atorvastatin Calcium (Atorvastatin Calcium) 40 Mg Tab, 40 MG PO QHS, (Reported) Clopidogrel Bisulfate (Plavix) 75 Mg Tab, 75 MG PO DAILY, (Reported) Fenofibrate (Fenofibrate) 160 Mg Tab, 160 MG PO QHS, (Reported) Fish Oil (Fish Oil) 1,000 Mg Cap, 4,000 MG PO QHS, (Reported) Glimepiride (Glimepiride) 4 Mg Tab, 4 MG PO DAILY, (Reported) Lisinopril (Lisinopril) 10 Mg Tab, 10 MG PO DAILY, (Reported) Metoprolol Succinate (Metoprolol Succinate ER) 100 Mg Tab, 150 MG PO DAILY, (Reported) Multivitamins *[facility] STOCKED* (Thera M Plus *[facility] STOCKED*) 1 Tab Tab, 1 TAB PO DAILY, (Reported) Pantoprazole Sodium (Pantoprazole Sodium) 40 Mg Tab, 40 MG PO DAILY, (Reported) Ranitidine HCl (Ranitidine HCl) 150 Mg Tab, 1 TAB PO BID, (Reported) Sitagliptin Phosphate (Januvia) 100 Mg Tab, 50 MG PO DAILY, (Reported) Scheduled PRN Nitroglycerin (Nitrostat) 0.4 Mg Subl, 0.4 MG SL NITRO PRN for CHEST PAIN, (Reported) Allergies Coded Allergies: Naproxen (Verified Adverse Reaction, Intermediate, Nausea and vomiting, 10/17/18) SABRINA MUELLER MD Oct 20, 2018 14:57
== END 2018-10-20 11:05 | disposition home or self-care (01) | DRG 395 ==
LOC: M ED 10:21 → M ED INP 15:54 → M PCU 17:02
PROVIDERS: ADMIT Internal Medicine; ATTEND Internal Medicine
PROC: 0DBL8ZX Excision of Transverse Colon, Via Natural or Artificial Opening Endoscopic, Diagnostic (ICD-10-PCS; principal; 2018-10-19)
PROC: 0DBM8ZX Excision of Descending Colon, Via Natural or Artificial Opening Endoscopic, Diagnostic (ICD-10-PCS; 2018-10-19)
DX: K64.9 Unspecified hemorrhoids (principal); K57.90 Diverticulosis of intestine, part unspecified, without perforation or abscess without bleeding; I25.10 Atherosclerotic heart disease of native coronary artery without angina pectoris; K21.9 Gastro-esophageal reflux disease without esophagitis; I10 Essential (primary) hypertension; L40.8 Other psoriasis; Z95.2 Presence of prosthetic heart valve; E11.9 Type 2 diabetes mellitus without complications; D64.9 Anemia, unspecified; Z79.82 Long term (current) use of aspirin; Z79.899 Other long term (current) drug therapy; Z88.8 Allergy status to other drugs, medicaments and biological substances; D12.3 Benign neoplasm of transverse colon; D12.4 Benign neoplasm of descending colon; E78.5 Hyperlipidemia, unspecified; Z87.891 Personal history of nicotine dependence

== ENCOUNTER → 2018-11-23 | Outpatient (REF) | payer MEDICARE, MEDICAID ==
[~2018-11-23] MED LIST changes: +ASPI1TAB15 PO; +ATOR40TA75 PO; +FENO160T10 PO; +FISH1000 PO; +JANU100T PO; +METO1TAB33 PO; +NITR4TASL SL; +PANT40TA3 PO; +PLAV1TAB2 PO; +RANI150T PO; +TRES1INJ SC; +VITMTA PO
[2018-11-23 11:24] LABS: BASO % 0.4 % (0.0-1.0); EOS # 0.2 10^3/uL (0.0-0.50); EOS % 3.3 % (0.0-3.0); HEMATOCRIT 35.2 % (42.0-52.0); HEMOGLOBIN 11.5 g/dl (13.5-17.5); LYMPH # 2.8 10^3/uL (1.5-4.5); LYMPH % 41.3 % (24.0-44.0); MEAN CORPUSCULAR HEMOGLOBIN 32.2 pg (27.0-33.0); MEAN CORPUSCULAR HGB CONC 32.7 g/dl (32.0-36.5); MEAN CORPUSCULAR VOLUME 98.6 fl (80.0-96.0); MONO # 0.6 10^3/uL (0.0-0.8); MONO % 9.5 % (0.0-5.0); NEUTROPHILS % 44.9 % (36.0-66.0); PLATELET COUNT, AUTOMATED 218 10^3/uL (150-450); RED BLOOD COUNT 3.57 10^6/uL (4.30-6.10); WHITE BLOOD COUNT 6.7 10^3/uL (4.0-10.0)
[2018-11-23 11:51] LABS: ALBUMIN 3.6 GM/DL (3.2-5.2); BILIRUBIN,TOTAL 0.3 MG/DL (0.2-1.0); CALCIUM LEVEL 8.8 MG/DL (8.8-10.2); CHOLESTEROL RISK RATIO 4.333 (<5); CREATININE FOR GFR 1.73 MG/DL (0.70-1.30); DIGOXIN LEVEL 0.8 NG/ML (0.5-2.0); GLOMERULAR FILTRATION RATE 40.8 (>42); POTASSIUM SERUM 4.9 MEQ/L (3.5-5.1); TOTAL PROTEIN 7.3 GM/DL (6.4-8.2)
[2018-11-23 11:55] LABS: HEMOGLOBIN A1c 6.9 %
== END ==
LOC: M LAB REF 10:59
PROVIDERS: ATTEND Internal Medicine Cardiovascular Disease
DX: E87.5 Hyperkalemia (principal); I11.0 Hypertensive heart disease with heart failure; E78.2 Mixed hyperlipidemia; I50.22 Chronic systolic (congestive) heart failure; I65.23 Occlusion and stenosis of bilateral carotid arteries; G47.33 Obstructive sleep apnea (adult) (pediatric); R94.31 Abnormal electrocardiogram [ECG] [EKG]; R06.02 Shortness of breath; E66.9 Obesity, unspecified; Z95.5 Presence of coronary angioplasty implant and graft

== ENCOUNTER → 2018-11-23 | Outpatient (REF) | payer MEDICARE, MEDICAID ==
[2018-11-23 11:32] LABS: ALBUMIN 3.7 GM/DL (3.2-5.2); BILIRUBIN,TOTAL 0.3 MG/DL (0.2-1.0); CALCIUM LEVEL 8.5 MG/DL (8.8-10.2); CHOLESTEROL RISK RATIO 4.038 (<5); CREATININE FOR GFR 1.79 MG/DL (0.70-1.30); GLOMERULAR FILTRATION RATE 39.2 (>42); POTASSIUM SERUM 4.9 MEQ/L (3.5-5.1); TOTAL PROTEIN 7.4 GM/DL (6.4-8.2)
[2018-11-23 11:40] LABS: TOTAL 25(OH) VITAMIN D 45.2 NG/ML (30.0-100.0)
== END ==
LOC: M SFHCLACO 10:57
PROVIDERS: ATTEND Physician Assistant
DX: E78.2 Mixed hyperlipidemia (principal); E11.22 Type 2 diabetes mellitus with diabetic chronic kidney disease; E55.9 Vitamin D deficiency, unspecified; E87.5 Hyperkalemia; I11.0 Hypertensive heart disease with heart failure; I50.22 Chronic systolic (congestive) heart failure; I65.23 Occlusion and stenosis of bilateral carotid arteries; G47.33 Obstructive sleep apnea (adult) (pediatric); R94.31 Abnormal electrocardiogram [ECG] [EKG]; R06.02 Shortness of breath; E66.9 Obesity, unspecified; Z95.5 Presence of coronary angioplasty implant and graft

== ENCOUNTER → 2019-03-23 | Outpatient (REF) | payer MEDICARE, MEDICAID ==
[~2019-03-23] MED LIST changes: -/PANT40TA PO; +PROT1TAB2 PO
[2019-03-23 13:35] LABS: HEMOGLOBIN A1c 7.4 %
[2019-03-23 13:36] LABS: ALBUMIN 3.8 GM/DL (3.2-5.2); BILIRUBIN,TOTAL 0.4 MG/DL (0.2-1.0); CALCIUM LEVEL 9.2 MG/DL (8.8-10.2); CHOLESTEROL RISK RATIO 4.48 (<5); CREATININE FOR GFR 1.85 MG/DL (0.70-1.30); GLOMERULAR FILTRATION RATE 37.7 (>42); POTASSIUM SERUM 4.7 MEQ/L (3.5-5.1)
== END ==
LOC: M SFHCADAM 08:23
PROVIDERS: ATTEND Physician Assistant
DX: I10 Essential (primary) hypertension (principal); E11.9 Type 2 diabetes mellitus without complications; E78.2 Mixed hyperlipidemia

== ENCOUNTER 2019-06-14 10:10 | Emergency (ER) | payer MEDICARE, MEDICAID ==
[~2019-06-14] VITALS: Ht 172.7 cm; Wt 90.9 kg
[~2019-06-14 10:10] MED LIST changes: -GLIM4TAB PO; +GLIM4TAB3 PO
[2019-06-14] MEDS ORDERED: NS 1,000 ML IV SCH (10:24)
[2019-06-14 11:06] LABS: BASO % 0.5 % (0.0-1.0); EOS # 0.2 10^3/uL (0.0-0.5); EOS % 2.8 % (0.0-3.0); HEMATOCRIT 35.6 % (42.0-52.0); HEMOGLOBIN 11.6 g/dl (13.5-17.5); LYMPH # 2.8 10^3/uL (1.5-5.0); LYMPH % 42.3 % (24.0-44.0); MEAN CORPUSCULAR HEMOGLOBIN 32.9 pg (27.0-33.0); MEAN CORPUSCULAR HGB CONC 32.6 g/dl (32.0-36.5); MEAN CORPUSCULAR VOLUME 100.8 fl (80.0-96.0); MONO # 0.6 10^3/uL (0.0-0.8); MONO % 8.4 % (0.0-5.0); NEUTROPHILS % 45.4 % (36.0-66.0); PLATELET COUNT, AUTOMATED 217 10^3/uL (150-450); RED BLOOD COUNT 3.53 10^6/uL (4.30-6.10); WHITE BLOOD COUNT 6.5 10^3/uL (4.0-10.0)
[2019-06-14 11:17] LABS: INR 1.11; PARTIAL THROMBOPLASTIN TIME 28.6 SECONDS (25.0-38.4)
[2019-06-14 11:32] LABS: ALBUMIN 3.6 GM/DL (3.2-5.2); ALT/SGPT 36 U/L (12-78); BILIRUBIN,DIRECT < 0.1 MG/DL (0.0-0.2); BILIRUBIN,TOTAL 0.3 MG/DL (0.2-1.0); CK-MB VALUE MASS 2.4 NG/ML (<3.6); CPK CREATINE PHOSPHOKINASE 141 U/L (39-308); LIPASE 110 U/L (73-393); TOTAL PROTEIN 7.2 GM/DL (6.4-8.2); TROPONIN I 0.02 NG/ML (< 0.10)
--- NOTE | 2019-06-14 12:12 | ECGEPIP ---
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
[2019-06-14 14:56] LABS: HEMATOCRIT 33.9 % (42.0-52.0); MEAN CORPUSCULAR HEMOGLOBIN 32.1 pg (27.0-33.0); MEAN CORPUSCULAR HGB CONC 32.4 g/dl (32.0-36.5); MEAN CORPUSCULAR VOLUME 98.8 fl (80.0-96.0); PLATELET COUNT, AUTOMATED 202 10^3/uL (150-450); RED BLOOD COUNT 3.43 10^6/uL (4.30-6.10); WHITE BLOOD COUNT 6.8 10^3/uL (4.0-10.0)
[2019-06-14] MEDS ORDERED: ANUS25SU PR (14:59)
[2019-06-14 15:15] VITALS: BP 149/68
[2019-06-15] MEDS ORDERED: ANUS2.5C2 PR (08:54)
[2019-06-15] MEDS ORDERED: PROC2.5C3 PR (09:40)
== END 2019-06-14 15:28 | disposition home or self-care (01) ==
LOC: M ED 10:10
DX: K64.9 Unspecified hemorrhoids (principal); R00.1 Bradycardia, unspecified; I45.89 Other specified conduction disorders; I25.10 Atherosclerotic heart disease of native coronary artery without angina pectoris; E11.9 Type 2 diabetes mellitus without complications; I10 Essential (primary) hypertension; K21.9 Gastro-esophageal reflux disease without esophagitis; D64.89 Other specified anemias; Z95.1 Presence of aortocoronary bypass graft; Z95.5 Presence of coronary angioplasty implant and graft; Z87.891 Personal history of nicotine dependence; Z82.49 Family history of ischemic heart disease and other diseases of the circulatory system; Z79.82 Long term (current) use of aspirin; Z79.4 Long term (current) use of insulin; Z79.899 Other long term (current) drug therapy; Z88.6 Allergy status to analgesic agent

== ENCOUNTER 2019-06-15 08:47 | Emergency (ER) | payer MEDICARE, MEDICAID ==
[~2019-06-15] VITALS: Ht 172.7 cm; Wt 99.0 kg
[~2019-06-15 08:47] MED LIST changes: +ANUS25SU PR
[2019-06-15] MEDS ORDERED: ANUS2.5C2 PR (08:54)
[2019-06-15 09:29] LABS: BASO % 0.5 % (0.0-1.0); EOS # 0.2 10^3/uL (0.0-0.5); EOS % 3.2 % (0.0-3.0); HEMATOCRIT 35.3 % (42.0-52.0); HEMOGLOBIN 11.3 g/dl (13.5-17.5); LYMPH # 2.4 10^3/uL (1.5-5.0); LYMPH % 38.7 % (24.0-44.0); MEAN CORPUSCULAR HEMOGLOBIN 31.9 pg (27.0-33.0); MEAN CORPUSCULAR VOLUME 99.7 fl (80.0-96.0); MONO # 0.6 10^3/uL (0.0-0.8); MONO % 8.9 % (0.0-5.0); NEUTROPHILS % 48.1 % (36.0-66.0); PLATELET COUNT, AUTOMATED 229 10^3/uL (150-450); RED BLOOD COUNT 3.54 10^6/uL (4.30-6.10); WHITE BLOOD COUNT 6.3 10^3/uL (4.0-10.0)
[2019-06-15] MEDS ORDERED: PROC2.5C3 PR (09:40)
[2019-06-15 09:56] LABS: CALCIUM LEVEL 9.2 MG/DL (8.8-10.2); CREATININE FOR GFR 1.69 MG/DL (0.70-1.30); GLOMERULAR FILTRATION RATE 41.9 (>42); POTASSIUM SERUM 4.7 MEQ/L (3.5-5.1)
[2019-06-15 10:04] VITALS: BP 134/86
== END 2019-06-15 10:11 | disposition home or self-care (01) ==
LOC: M ED 08:47
DX: K64.8 Other hemorrhoids (principal); E11.9 Type 2 diabetes mellitus without complications; I10 Essential (primary) hypertension; I25.2 Old myocardial infarction; E78.00 Pure hypercholesterolemia, unspecified; K21.9 Gastro-esophageal reflux disease without esophagitis; Z95.1 Presence of aortocoronary bypass graft; Z95.5 Presence of coronary angioplasty implant and graft; Z79.82 Long term (current) use of aspirin; Z79.4 Long term (current) use of insulin; Z79.899 Other long term (current) drug therapy; Z88.6 Allergy status to analgesic agent

== ENCOUNTER → 2019-06-26 | Outpatient (REF) | payer MEDICARE, MEDICAID ==
[~2019-06-26] MED LIST changes: +ANUS2.5C2 PR; +PROC2.5C3 PR
[2019-06-26 13:19] LABS: HEMOGLOBIN 10.8 g/dl (13.5-17.5); MEAN CORPUSCULAR HEMOGLOBIN 33.2 pg (27.0-33.0); MEAN CORPUSCULAR HGB CONC 32.7 g/dl (32.0-36.5); MEAN CORPUSCULAR VOLUME 101.5 fl (80.0-96.0); PLATELET COUNT, AUTOMATED 216 10^3/uL (150-450); RED BLOOD COUNT 3.25 10^6/uL (4.30-6.10); WHITE BLOOD COUNT 6.6 10^3/uL (4.0-10.0)
== END ==
LOC: M SFHCADAM 08:22
PROVIDERS: ATTEND Physician Assistant
DX: D50.0 Iron deficiency anemia secondary to blood loss (chronic) (principal); K64.8 Other hemorrhoids

== ENCOUNTER → 2019-10-02 | Outpatient (REF) | payer MEDICARE, MEDICAID ==
[~2019-10-02] MED LIST changes: -DIGO0.12 PO; +DIGO0.123 PO; -GLIM4TAB3 PO; +GLIM4TAB5 PO
[2019-10-02 13:48] LABS: ALBUMIN 3.6 GM/DL (3.2-5.2); BILIRUBIN,TOTAL 0.3 MG/DL (0.2-1.0); CALCIUM LEVEL 9.1 MG/DL (8.8-10.2); CHOLESTEROL RISK RATIO 5.19 (<5); CREATININE FOR GFR 1.66 MG/DL (0.70-1.30); GLOMERULAR FILTRATION RATE 42.6 (>35); POTASSIUM SERUM 4.5 MEQ/L (3.5-5.1); TOTAL PROTEIN 6.9 GM/DL (6.4-8.2)
[2019-10-02 13:50] LABS: TOTAL 25(OH) VITAMIN D 35.5 NG/ML (30.0-100.0)
[2019-10-02 14:49] LABS: HEMOGLOBIN A1c 8.2 %
== END ==
LOC: M SFHCADAM 07:48
PROVIDERS: ATTEND Physician Assistant
DX: Z12.5 Encounter for screening for malignant neoplasm of prostate (principal); I10 Essential (primary) hypertension; E78.2 Mixed hyperlipidemia; E11.9 Type 2 diabetes mellitus without complications; E55.9 Vitamin D deficiency, unspecified; Z79.899 Other long term (current) drug therapy
CPT/HCPCS: 80053; 80061; 82306; 83036; G0103

== ENCOUNTER → 2019-12-20 | Outpatient (REF) | payer MEDICARE, MEDICAID ==
[2019-12-20 13:58] LABS: BASO % 0.4 % (0.0-1.0); EOS # 0.2 10^3/uL (0.0-0.5); EOS % 2.6 % (0.0-3.0); HEMATOCRIT 35.9 % (42.0-52.0); HEMOGLOBIN 11.7 g/dl (13.5-17.5); LYMPH # 3.3 10^3/uL (1.5-5.0); LYMPH % 44.3 % (24.0-44.0); MEAN CORPUSCULAR HEMOGLOBIN 32.3 pg (27.0-33.0); MEAN CORPUSCULAR HGB CONC 32.6 g/dl (32.0-36.5); MEAN CORPUSCULAR VOLUME 99.2 fl (80.0-96.0); MONO # 0.7 10^3/uL (0.0-0.8); MONO % 8.9 % (0.0-5.0); NEUTROPHILS # 3.2 10^3/uL (1.5-8.5); NEUTROPHILS % 43.3 % (36.0-66.0); PLATELET COUNT, AUTOMATED 252 10^3/uL (150-450); RED BLOOD COUNT 3.62 10^6/uL (4.30-6.10); WHITE BLOOD COUNT 7.5 10^3/uL (4.0-10.0)
[2019-12-20 14:17] LABS: ALBUMIN 3.5 GM/DL (3.2-5.2); BILIRUBIN,TOTAL 0.4 MG/DL (0.2-1.0); CALCIUM LEVEL 8.9 MG/DL (8.8-10.2); CHOLESTEROL RISK RATIO 4.791 (<5); CREATININE FOR GFR 1.59 MG/DL (0.70-1.30); DIGOXIN LEVEL 0.9 NG/ML (0.5-2.0); GLOMERULAR FILTRATION RATE 44.8 (>35); POTASSIUM SERUM 4.6 MEQ/L (3.5-5.1)
== END ==
LOC: M LABDRWAD 12:27
PROVIDERS: ATTEND Physician Assistant Medical
DX: I21.4 Non-ST elevation (NSTEMI) myocardial infarction (principal); I25.5 Ischemic cardiomyopathy; I50.22 Chronic systolic (congestive) heart failure; I25.118 Atherosclerotic heart disease of native coronary artery with other forms of angina pectoris; G47.33 Obstructive sleep apnea (adult) (pediatric); E66.9 Obesity, unspecified; I65.23 Occlusion and stenosis of bilateral carotid arteries; J44.9 Chronic obstructive pulmonary disease, unspecified; I10 Essential (primary) hypertension; E78.5 Hyperlipidemia, unspecified; R06.02 Shortness of breath

== ENCOUNTER → 2020-02-28 | Outpatient (REF) | payer MEDICARE, MEDICAID ==
[~2020-02-28] MED LIST changes: +ASPI-546 PO; -ASPI1TAB15 PO; +PANT40TA29 PO; -PANT40TA3 PO
[2020-02-28 13:11] LABS: HEMOGLOBIN A1c 6.9 %
[2020-02-28 13:19] LABS: ALBUMIN 3.4 GM/DL (3.2-5.2); BILIRUBIN,TOTAL 0.4 MG/DL (0.2-1.0); CHOLESTEROL RISK RATIO 4.739 (<5); CREATININE FOR GFR 1.7 MG/DL (0.70-1.30); GLOMERULAR FILTRATION RATE 41.5 (>35); POTASSIUM SERUM 5.2 MEQ/L (3.5-5.1); TOTAL PROTEIN 6.9 GM/DL (6.4-8.2)
== END ==
LOC: M SFHCADAM 08:40
PROVIDERS: ATTEND Physician Assistant
DX: I10 Essential (primary) hypertension (principal); E78.2 Mixed hyperlipidemia; E11.9 Type 2 diabetes mellitus without complications

== ENCOUNTER → 2020-09-11 | Outpatient (REF) | payer MEDICARE, MEDICAID ==
[2020-09-11 13:26] LABS: ALBUMIN 3.7 GM/DL (3.2-5.2); BILIRUBIN,TOTAL 0.4 MG/DL (0.2-1.0); CALCIUM LEVEL 9.4 MG/DL (8.8-10.2); CHOLESTEROL RISK RATIO 4.678 (<5); CREATININE FOR GFR 1.65 MG/DL (0.70-1.30); GLOMERULAR FILTRATION RATE 42.8 (>35); HEMOGLOBIN A1c 6.7 %; POTASSIUM SERUM 4.8 MEQ/L (3.5-5.1); TOTAL PROTEIN 7.3 GM/DL (6.4-8.2)
== END ==
LOC: M SFHCADAM 08:41
PROVIDERS: ATTEND Physician Assistant
DX: I10 Essential (primary) hypertension (principal); E78.2 Mixed hyperlipidemia; Z12.5 Encounter for screening for malignant neoplasm of prostate
CPT/HCPCS: 80053; 80061; 83036; G0103

== ENCOUNTER → 2020-09-11 | Outpatient (REF) | payer MEDICARE, MEDICAID ==
[2020-09-11 15:11] LABS: HEMOGLOBIN A1c 6.7 %
[2020-09-11 15:15] LABS: HEMATOCRIT 38.5 % (42.0-52.0); HEMOGLOBIN 12.4 g/dl (13.5-17.5); MEAN CORPUSCULAR HEMOGLOBIN 31.2 pg (27.0-33.0); MEAN CORPUSCULAR HGB CONC 32.2 g/dl (32.0-36.5); MEAN CORPUSCULAR VOLUME 96.7 fl (80.0-96.0); PLATELET COUNT, AUTOMATED 246 10^3/uL (150-450); RED BLOOD COUNT 3.98 10^6/uL (4.30-6.10); WHITE BLOOD COUNT 8.8 10^3/uL (4.0-10.0)
[2020-09-11 15:30] LABS: ALBUMIN 3.7 GM/DL (3.2-5.2); BILIRUBIN,TOTAL 0.4 MG/DL (0.2-1.0); CALCIUM LEVEL 9.5 MG/DL (8.8-10.2); CHOLESTEROL RISK RATIO 4.629 (<5); CREATININE FOR GFR 1.7 MG/DL (0.70-1.30); DIGOXIN LEVEL 0.9 NG/ML (0.5-2.0); GLOMERULAR FILTRATION RATE 41.4 (>35); POTASSIUM SERUM 4.8 MEQ/L (3.5-5.1); THYROID STIMULATING HORMONE 2.44 uIU/ML (0.358-3.740); TOTAL PROTEIN 7.3 GM/DL (6.4-8.2)
== END ==
LOC: M LABDRWAD 14:54
PROVIDERS: ATTEND Internal Medicine Cardiovascular Disease
DX: I65.23 Occlusion and stenosis of bilateral carotid arteries (principal); I25.118 Atherosclerotic heart disease of native coronary artery with other forms of angina pectoris; E78.5 Hyperlipidemia, unspecified; I10 Essential (primary) hypertension; G47.33 Obstructive sleep apnea (adult) (pediatric); E66.9 Obesity, unspecified; J44.9 Chronic obstructive pulmonary disease, unspecified; E11.69 Type 2 diabetes mellitus with other specified complication; R06.02 Shortness of breath; E78.2 Mixed hyperlipidemia; R94.31 Abnormal electrocardiogram [ECG] [EKG]

== ENCOUNTER → 2021-01-20 | Outpatient (REF) | payer OTHER, MEDICAID ==
[~2021-01-20] MED LIST changes: +LISI10TA22 PO
[2021-01-20 12:43] LABS: BASO % 0.3 % (0.0-1.0); EOS # 0.2 10^3/uL (0.0-0.5); EOS % 2.6 % (0.0-3.0); HEMATOCRIT 37.2 % (42.0-52.0); HEMOGLOBIN 11.8 g/dl (13.5-17.5); LYMPH # 3.2 10^3/uL (1.5-5.0); LYMPH % 43.2 % (24.0-44.0); MEAN CORPUSCULAR HEMOGLOBIN 31.1 pg (27.0-33.0); MEAN CORPUSCULAR HGB CONC 31.7 g/dl (32.0-36.5); MEAN CORPUSCULAR VOLUME 97.9 fl (80.0-96.0); MONO # 0.7 10^3/uL (0.0-0.8); MONO % 9.3 % (2.0-8.0); NEUTROPHILS # 3.3 10^3/uL (1.5-8.5); NEUTROPHILS % 44.1 % (36.0-66.0); PLATELET COUNT, AUTOMATED 231 10^3/uL (150-450); WHITE BLOOD COUNT 7.5 10^3/uL (4.0-10.0)
[2021-01-20 13:33] LABS: ALBUMIN 3.4 GM/DL (3.2-5.2); BILIRUBIN,TOTAL 0.4 MG/DL (0.2-1.0); CALCIUM LEVEL 9.4 MG/DL (8.8-10.2); CHOLESTEROL RISK RATIO 4.615 (<5); CREATININE FOR GFR 1.56 MG/DL (0.70-1.30); DIGOXIN LEVEL 0.9 NG/ML (0.5-2.0); GLOMERULAR FILTRATION RATE 45.7 (>35); POTASSIUM SERUM 4.8 MEQ/L (3.5-5.1); TOTAL PROTEIN 6.8 GM/DL (6.4-8.2)
== END ==
LOC: M LABDRWAD 12:22
PROVIDERS: ATTEND Physician Assistant Medical
DX: I25.118 Atherosclerotic heart disease of native coronary artery with other forms of angina pectoris (principal); I49.3 Ventricular premature depolarization; J44.9 Chronic obstructive pulmonary disease, unspecified; G47.33 Obstructive sleep apnea (adult) (pediatric); E66.9 Obesity, unspecified

== ENCOUNTER → 2021-03-06 | Outpatient (REF) | payer MEDICARE, MEDICAID ==
[2021-03-06 13:21] LABS: BASO % 0.2 % (0.0-1.0); EOS # 0.2 10^3/uL (0.0-0.5); EOS % 2.2 % (0.0-3.0); HEMATOCRIT 35.7 % (42.0-52.0); HEMOGLOBIN 11.3 g/dl (13.5-17.5); LYMPH # 3.7 10^3/uL (1.5-5.0); LYMPH % 44.8 % (24.0-44.0); MEAN CORPUSCULAR HEMOGLOBIN 31.9 pg (27.0-33.0); MEAN CORPUSCULAR HGB CONC 31.7 g/dl (32.0-36.5); MEAN CORPUSCULAR VOLUME 100.8 fl (80.0-96.0); MONO # 0.8 10^3/uL (0.0-0.8); MONO % 9.7 % (2.0-8.0); NEUTROPHILS # 3.5 10^3/uL (1.5-8.5); NEUTROPHILS % 42.5 % (36.0-66.0); PLATELET COUNT, AUTOMATED 252 10^3/uL (150-450); RED BLOOD COUNT 3.54 10^6/uL (4.30-6.10); WHITE BLOOD COUNT 8.2 10^3/uL (4.0-10.0)
[2021-03-06 13:58] LABS: THYROID STIMULATING HORMONE 2.47 uIU/ML (0.358-3.740)
== END ==
LOC: M LABDRWAD 12:40
PROVIDERS: ATTEND Internal Medicine Cardiovascular Disease
DX: I65.23 Occlusion and stenosis of bilateral carotid arteries (principal); I50.22 Chronic systolic (congestive) heart failure; I25.118 Atherosclerotic heart disease of native coronary artery with other forms of angina pectoris; E78.5 Hyperlipidemia, unspecified; I10 Essential (primary) hypertension; J44.9 Chronic obstructive pulmonary disease, unspecified; E66.9 Obesity, unspecified; G47.33 Obstructive sleep apnea (adult) (pediatric); E78.2 Mixed hyperlipidemia; R94.31 Abnormal electrocardiogram [ECG] [EKG]; R06.02 Shortness of breath; I47.2 Ventricular tachycardia; E11.69 Type 2 diabetes mellitus with other specified complication

== ENCOUNTER → 2021-03-06 | Outpatient (REF) | payer MEDICARE, MEDICAID ==
[2021-03-06 13:51] LABS: ALT/SGPT 47 U/L (12-78); BILIRUBIN,TOTAL 0.5 MG/DL (0.2-1.0); BLOOD UREA NITROGEN 23 MG/DL (7-18); CALCIUM LEVEL 8.8 MG/DL (8.8-10.2); CARBON DIOXIDE LEVEL 29 MEQ/L (21-32); CHLORIDE LEVEL 110 MEQ/L (98-107); CHOLESTEROL LEVEL 111 MG/DL (<200); CREATININE FOR GFR 1.18 MG/DL (0.70-1.30); GLOMERULAR FILTRATION RATE > 60.0 (>35); GLUCOSE, FASTING 69 MG/DL (70-100); HDL CHOLESTEROL 41 MG/DL (>40); POTASSIUM SERUM 4.8 MEQ/L (3.5-5.1); SODIUM LEVEL 142 MEQ/L (136-145); TRIGLYCERIDES LEVEL 80 MG/DL (<150)
[2021-03-06 13:52] LABS: ALBUMIN 3.4 GM/DL (3.2-5.2); CHOLESTEROL RISK RATIO 2.707 (<5); LDL CHOLESTEROL 54 MG/DL (<100); NON-HDL-C 70 MG/DL; TOTAL PROTEIN 6.5 GM/DL (6.4-8.2)
[2021-03-06 13:55] LABS: HEMOGLOBIN A1c 6.2 %
== END ==
LOC: M SFHCADAM 07:48
PROVIDERS: ATTEND Physician Assistant
DX: E78.2 Mixed hyperlipidemia (principal); I10 Essential (primary) hypertension

== ENCOUNTER → 2021-09-24 | Outpatient (REF) | payer OTHER, MEDICARE, MEDICAID ==
[2021-09-24 13:48] LABS: BASO % 0.3 % (0.0-1.0); EOS # 0.2 10^3/uL (0.0-0.5); EOS % 1.9 % (0.0-3.0); HEMATOCRIT 45.3 % (42.0-52.0); HEMOGLOBIN 14.2 g/dl (13.5-17.5); LYMPH # 4.1 10^3/uL (1.5-5.0); LYMPH % 40.9 % (24.0-44.0); MEAN CORPUSCULAR HEMOGLOBIN 30.3 pg (27.0-33.0); MEAN CORPUSCULAR HGB CONC 31.3 g/dl (32.0-36.5); MEAN CORPUSCULAR VOLUME 96.8 fl (80.0-96.0); MONO # 0.8 10^3/uL (0.0-0.8); MONO % 7.6 % (2.0-8.0); NEUTROPHILS # 4.8 10^3/uL (1.5-8.5); NEUTROPHILS % 48.6 % (36.0-66.0); PLATELET COUNT, AUTOMATED 218 10^3/uL (150-450); RED BLOOD COUNT 4.68 10^6/uL (4.30-6.10)
[2021-09-24 15:53] LABS: ALBUMIN 3.6 GM/DL (3.2-5.2); BILIRUBIN,TOTAL 0.5 MG/DL (0.2-1.0); CALCIUM LEVEL 9.1 MG/DL (8.8-10.2); CHOLESTEROL RISK RATIO 2.76 (<5); CREATININE FOR GFR 1.26 MG/DL (0.70-1.30); GLOMERULAR FILTRATION RATE 58.3 (>35); POTASSIUM SERUM 4.6 MEQ/L (3.5-5.1); THYROID STIMULATING HORMONE 2.84 uIU/ML (0.358-3.740); TOTAL PROTEIN 7.2 GM/DL (6.4-8.2)
[2021-09-24 16:08] LABS: HEMOGLOBIN A1c 6.1 %
== END ==
LOC: M LABDRWAD 13:16
PROVIDERS: ATTEND Internal Medicine Cardiovascular Disease
DX: I25.118 Atherosclerotic heart disease of native coronary artery with other forms of angina pectoris (principal); I11.0 Hypertensive heart disease with heart failure; I65.23 Occlusion and stenosis of bilateral carotid arteries; I50.22 Chronic systolic (congestive) heart failure; I47.2 Ventricular tachycardia; J44.9 Chronic obstructive pulmonary disease, unspecified; E66.9 Obesity, unspecified; G47.33 Obstructive sleep apnea (adult) (pediatric); R94.31 Abnormal electrocardiogram [ECG] [EKG]; E78.2 Mixed hyperlipidemia; R06.02 Shortness of breath; E11.69 Type 2 diabetes mellitus with other specified complication; I49.3 Ventricular premature depolarization

== ENCOUNTER → 2021-09-24 | Outpatient (REF) | payer OTHER, MEDICARE, MEDICAID ==
[2021-09-24 15:18] LABS: ALBUMIN 3.7 GM/DL (3.2-5.2); BILIRUBIN,TOTAL 0.5 MG/DL (0.2-1.0); CALCIUM LEVEL 9.3 MG/DL (8.8-10.2); CHOLESTEROL RISK RATIO 2.851 (<5); CREATININE FOR GFR 1.3 MG/DL (0.70-1.30); GLOMERULAR FILTRATION RATE 56.3 (>35); POTASSIUM SERUM 4.9 MEQ/L (3.5-5.1); TOTAL PROTEIN 7.4 GM/DL (6.4-8.2)
[2021-09-24 16:09] LABS: HEMOGLOBIN A1c 6.2 %
== END ==
LOC: M SFHCADAM 08:13
PROVIDERS: ATTEND Physician Assistant
DX: I12.9 Hypertensive chronic kidney disease with stage 1 through stage 4 chronic kidney disease, or unspecified chronic kidney disease (principal); E78.2 Mixed hyperlipidemia; E11.22 Type 2 diabetes mellitus with diabetic chronic kidney disease; Z12.5 Encounter for screening for malignant neoplasm of prostate; N18.9 Chronic kidney disease, unspecified
CPT/HCPCS: 80053; 80061; 83036; G0103

== ENCOUNTER → 2022-03-04 | Outpatient (CLI) | payer OTHER, MEDICAID ==
[2022-03-04 13:32] LABS: BLOOD UREA NITROGEN 21 MG/DL (7-18); CARBON DIOXIDE LEVEL 30 MEQ/L (21-32); CHLORIDE LEVEL 102 MEQ/L (98-107); CREATININE FOR GFR 1.22 MG/DL (0.70-1.30); GLOMERULAR FILTRATION RATE > 60.0 (>35); GLUCOSE, FASTING 152 MG/DL (70-100); SODIUM LEVEL 137 MEQ/L (136-145)
== END ==
LOC: M ADAMS 09:39
PROVIDERS: ATTEND Internal Medicine Cardiovascular Disease
DX: I25.10 Atherosclerotic heart disease of native coronary artery without angina pectoris (principal); I50.22 Chronic systolic (congestive) heart failure; R94.31 Abnormal electrocardiogram [ECG] [EKG]; R06.02 Shortness of breath; I47.2 Ventricular tachycardia; I10 Essential (primary) hypertension; J44.9 Chronic obstructive pulmonary disease, unspecified; I65.23 Occlusion and stenosis of bilateral carotid arteries; E66.9 Obesity, unspecified; G47.33 Obstructive sleep apnea (adult) (pediatric); E78.2 Mixed hyperlipidemia; I49.3 Ventricular premature depolarization; E11.69 Type 2 diabetes mellitus with other specified complication

== ENCOUNTER 2022-03-23 11:18 | Emergency (ER) | payer OTHER, MEDICAID ==
[~2022-03-23] VITALS: Ht 170.2 cm; Wt 88.8 kg
[2022-03-23 12:57] LABS: RSV AMPLIFICATION NEGATIVE (NEGATIVE)
[2022-03-23 13:27] VITALS: O2SAT 95
[2022-03-23] MEDS ORDERED: TRIA1CR80 TOP (13:48)
[2022-03-23] MEDS ORDERED: ENTR1TAB7 PO (13:48)
[2022-03-23] MEDS ORDERED: FAMO20TA5 PO (13:48)
[2022-03-23] MEDS ORDERED: METO1TAB7 PO (13:48)
[2022-03-23] MEDS ORDERED: TRES100I SC (13:48)
[2022-03-23 14:48] LABS: BASO % 0.4 % (0.0-1.0); EOS # 0.1 10^3/uL (0.0-0.5); EOS % 1.2 % (0.0-3.0); HEMATOCRIT 47.5 % (42.0-52.0); HEMOGLOBIN 15.1 g/dl (13.5-17.5); LYMPH # 3.3 10^3/uL (1.5-5.0); LYMPH % 35.1 % (24.0-44.0); MEAN CORPUSCULAR HGB CONC 31.8 g/dl (32.0-36.5); MEAN CORPUSCULAR VOLUME 97.5 fl (80.0-96.0); MONO # 0.7 10^3/uL (0.0-0.8); MONO % 7.9 % (2.0-8.0); NEUTROPHILS # 5.1 10^3/uL (1.5-8.5); PLATELET COUNT, AUTOMATED 253 10^3/uL (150-450); RED BLOOD COUNT 4.87 10^6/uL (4.30-6.10); WHITE BLOOD COUNT 9.3 10^3/uL (4.0-10.0)
[2022-03-23 15:18] LABS: CALCIUM LEVEL 9.2 MG/DL (8.8-10.2); CREATININE FOR GFR 1.78 MG/DL (0.70-1.30); GLOMERULAR FILTRATION RATE 39.1 (>35); POTASSIUM SERUM 5.6 MEQ/L (3.5-5.1)
[2022-03-23 15:30] VITALS: BP 117/63
== END 2022-03-23 15:39 | disposition home or self-care (01) ==
LOC: M ED 11:18
DX: R06.02 Shortness of breath (principal); E78.5 Hyperlipidemia, unspecified; Z95.5 Presence of coronary angioplasty implant and graft; Z87.891 Personal history of nicotine dependence; Z88.6 Allergy status to analgesic agent; Z79.02 Long term (current) use of antithrombotics/antiplatelets; Z79.84 Long term (current) use of oral hypoglycemic drugs; Z79.899 Other long term (current) drug therapy

== ENCOUNTER → 2022-06-17 | Outpatient (CLI) | payer OTHER, MEDICARE, MEDICAID ==
[~2022-06-17] MED LIST changes: +ENTR1TAB7 PO; +FAMO20TA5 PO; +METO1TAB7 PO; +TRES100I SC; +TRIA1CR80 TOP
== END ==
LOC: M ADAMS 11:59
PROVIDERS: ATTEND Physician Assistant Medical
DX: R06.09 Other forms of dyspnea (principal); Z53.9 Procedure and treatment not carried out, unspecified reason

== ENCOUNTER → 2022-06-17 | Outpatient (REF) | payer OTHER, MEDICARE, MEDICAID ==
[2022-06-17 18:38] LABS: ALBUMIN 3.8 GM/DL (3.2-5.2); BILIRUBIN,TOTAL 0.5 MG/DL (0.2-1.0); CALCIUM LEVEL 9.6 MG/DL (8.8-10.2); CREATININE FOR GFR 1.28 MG/DL (0.70-1.30); GLOMERULAR FILTRATION RATE 57.3 (>35); POTASSIUM SERUM 4.5 MEQ/L (3.5-5.1); TOTAL PROTEIN 7.6 GM/DL (6.4-8.2)
[2022-06-17 21:29] LABS: APPEARANCE, URINE MANUAL CLEAR (CLEAR); COLOR, URINE MANUAL YELLOW (YELLOW); SPECIFIC GRAVITY,URINE MANUAL 1.025 (1.002-1.035)
[2022-06-17 21:30] LABS: BILIRUBIN, URINE MANUAL NEGATIVE (NEGATIVE); BLOOD URINE MANUAL NEGATIVE (NEGATIVE); GLUCOSE, URINE (UA) MANUAL NEGATIVE (NEGATIVE); KETONE, URINE MANUAL NEGATIVE (NEGATIVE); LEUKOCYTE ESTERASE, URINE MAN TRACE (NEGATIVE); NITRITE, URINE MANUAL NEGATIVE (NEGATIVE); PROTEIN, URINE MANUAL NEGATIVE (NEGATIVE); UROBILINOGEN, URINE MANUAL NORMAL (NORMAL)
[2022-06-17 21:53] LABS: BACTERIA, URINE NONE SEEN; HYALINE CAST, URINE TNTC /lpf (0-1); RBC, URINE NONE SEEN /hpf (0-3); SQUAMOUS EPITHELIAL CELL URINE SMALL AMOUNT /hpf (SMALL AMT)
== END ==
LOC: M SFHCADAM 11:34
PROVIDERS: ATTEND Physician Assistant Medical
DX: R06.09 Other forms of dyspnea (principal); I25.10 Atherosclerotic heart disease of native coronary artery without angina pectoris; I50.42 Chronic combined systolic (congestive) and diastolic (congestive) heart failure; G47.33 Obstructive sleep apnea (adult) (pediatric); R44.3 Hallucinations, unspecified

== ENCOUNTER 2022-07-11 18:00 | Inpatient (IN) | payer OTHER, MEDICARE, MEDICAID ==
[~2022-07-11] VITALS: Ht 172.7 cm; Wt 86.5 kg
[2022-07-11] VITALS (7 sets, daily range): BP systolic 90–144; BP diastolic 58–94; O2SAT 100
[~2022-07-11 18:00] MED LIST changes: +ALBU2.5V10 PO; +AMIO200T49 PO; +ASPI81CH33 PO; +CLOP75TA2 PO; +CLOP75TA99 PO; +ENTR1TAB PO; +FURO20TA2 PO; +JARD1TAB PO; -PLAV1TAB2 PO
[2022-07-11] MEDS ORDERED: MIDAZOLAM INJ 2MG/2ML VIAL (J2250 PER 1MG) As Ordered ONE (18:15)
[2022-07-11] MEDS ORDERED: LIDOCAINE 2% 5ML JELLY UROJET TOP ONE (18:20)
[2022-07-11] MEDS ORDERED: MIDAZOLAM 100MG/100ML-0.9%NACL 100 MG in IV 1 EA IV SCH (18:20)
[2022-07-11 18:59] LABS: INR 1.63; PROTHROMBIN TIME 19.6 SECONDS (12.5-14.5)
[2022-07-11 19:00] LABS: EOS % 0.2 % (0.0-3.0); HEMATOCRIT 28.8 % (42.0-52.0); HEMOGLOBIN 8.7 g/dl (13.5-17.5); LYMPH # 0.8 10^3/uL (1.5-5.0); LYMPH % 12.7 % (24.0-44.0); MEAN CORPUSCULAR HEMOGLOBIN 32.7 pg (27.0-33.0); MEAN CORPUSCULAR HGB CONC 30.2 g/dl (32.0-36.5); MEAN CORPUSCULAR VOLUME 108.3 fl (80.0-96.0); MONO # 0.4 10^3/uL (0.0-0.8); MONO % 7.2 % (2.0-8.0); NEUTROPHILS # 4.9 10^3/uL (1.5-8.5); NEUTROPHILS % 79.1 % (36.0-66.0); PLATELET COUNT, AUTOMATED 200 10^3/uL (150-450); RED BLOOD COUNT 2.66 10^6/uL (4.30-6.10); WHITE BLOOD COUNT 6.1 10^3/uL (4.0-10.0)
[2022-07-11 19:01] LABS: D-DIMER QUANT 722.62 ng/ml (<500)
[2022-07-11 19:19] LABS: ALBUMIN 2.8 GM/DL (3.2-5.2); BILIRUBIN,DIRECT 0.2 MG/DL (0.0-0.2); BILIRUBIN,TOTAL 0.5 MG/DL (0.2-1.0); CALCIUM LEVEL 8.1 MG/DL (8.8-10.2); CK-MB VALUE MASS 5.1 NG/ML (<3.6); CREATININE FOR GFR 1.75 MG/DL (0.70-1.30); GLOMERULAR FILTRATION RATE 39.8 (>35); MB/CK RELATIVE INDEX 5.37 (< OR =4); POTASSIUM SERUM 5.7 MEQ/L (3.5-5.1); THYROID STIMULATING HORMONE 2.97 uIU/ML (0.358-3.740); THYROXINE (T4) 9.6 UG/DL (4.5-12.0); TOTAL PROTEIN 5.4 GM/DL (6.4-8.2)
[2022-07-11] MEDS: NOREPINEPHRINE 4MG IN D5 250ML 4 MG in IV 1 EA IV SCH ×6 (19:30→21:49)
[2022-07-11 19:38] LABS: RSV AMPLIFICATION NEGATIVE (NEGATIVE)
[2022-07-11] MEDS: IPRATROPIUM 0.5MG/ALBUTEROL 2.5MG INH SOL UD 3ML (DUONEB) NEB SCH (20:00)
[2022-07-11] MEDS ORDERED: ALBUTEROL SULFATE 2.5 MG/0.5 ML INH NEB SOLN NEB PRN (20:25)
[2022-07-11] MEDS ORDERED: GLUCAGON INJ 1MG VIAL SC PRN (20:25)
[2022-07-11] MEDS ORDERED: DEXTROSE 50% 50 ML SYRINGE IV PRN (20:25)
[2022-07-11] MEDS ORDERED: GLUCOSE 4GM CHEW TABLET PO PRN (20:25)
[2022-07-11] MEDS: DOPamine HCL 400 MG in IV 1 EA IV SCH ×2 (20:47→21:50)
[2022-07-11] MEDS ORDERED: PIPERACILLIN/TAZOBACTAM SOD 3.375 GM in D5W MINI-BAG PLUS 50 ML IV ONE (21:00)
[2022-07-11 21:15] LABS: ABG BASE EXCESS 2.9 (-2.0-2.0); ABG HCO3 29.2 MEQ/L (22.0-26.0); ABG O2 SATURATION 98.1 % (95.0-99.0); ABG PARTIAL PRESSURE CO2 53.4 mmHg (35.0-45.0); ABG PARTIAL PRESSURE O2 105.1 mmHg (75.0-100.0); ABG TOTAL CO2 30.8 MEQ/L (23.0-31.0); ABG pH (ARTERIAL) 7.355 UNITS (7.350-7.450)
[2022-07-11] MEDS ORDERED: INSU200I5 SQ (21:15)
[2022-07-11] MEDS ORDERED: ELIQ5TAB PO (21:17)
[2022-07-11] MEDS ORDERED: NADO20TA PO (21:17)
[2022-07-11] MEDS ORDERED: ALBU2.5V10 PO (21:17)
[2022-07-11] MEDS ORDERED: JARD1TAB PO (21:17)
[2022-07-11] MEDS ORDERED: DIGO0.123 PO (21:17)
[2022-07-11] MEDS ORDERED: ACET250T2 PO (21:17)
[2022-07-11] MEDS ORDERED: LISI2.5T9 PO (21:17)
[2022-07-11] MEDS ORDERED: AMIO200T49 PO (21:17)
[2022-07-11] MEDS ORDERED: FURO20TA2 PO (21:18)
[2022-07-11] MEDS ORDERED: MED REC COMMENT (21:19)
[2022-07-11] MEDS ORDERED: HOME MED LIST COMPLETE! XX SCH (21:20)
[2022-07-11] MEDS: methylPREDNISolone 40MG 1ML VIAL IV SCH (21:46)
[2022-07-11] MEDS: CHLORHEXIDINE GLUCONATE 0.12 % 15ML UDC (PERIDEX ORAL RINSE) MT SCH (21:47)
[2022-07-11] MEDS: MIDAZOLAM 100MG/100ML-0.9%NACL 100 MG in IV 1 EA IV SCH (21:48)
[2022-07-11] MEDS: INSULIN LISPRO (NovoLOG) PER UNIT SC SCH (23:34)
[2022-07-12] VITALS (111 sets, daily range): BP systolic 79–150; BP diastolic 37–97; O2SAT 100
[2022-07-12] MEDS ORDERED: UNRESOLVED CLARIFICATION ENTRY XX SCH (00:01)
[2022-07-12] MEDS: PIPERACILLIN/TAZOBACTAM SOD 3.375 GM in D5W MINI-BAG PLUS 50 ML IV SCH ×4 (02:39→21:18)
[2022-07-12] MEDS: methylPREDNISolone 40MG 1ML VIAL IV SCH ×4 (03:41→21:19)
[2022-07-12] MEDS: NOREPINEPHRINE 4MG IN D5 250ML 4 MG in IV 1 EA IV SCH ×8 (03:41→23:05)
[2022-07-12] MEDS: ACETAMINOPHEN 325 MG/10.15 ML UDC GT PRN ×2 (04:26→10:20)
[2022-07-12 04:36] LABS: HEMATOCRIT 27.2 % (42.0-52.0); HEMOGLOBIN 8.6 g/dl (13.5-17.5); LYMPH # 1.3 10^3/uL (1.5-5.0); LYMPH % 13.2 % (24.0-44.0); MEAN CORPUSCULAR HEMOGLOBIN 31.9 pg (27.0-33.0); MEAN CORPUSCULAR HGB CONC 31.6 g/dl (32.0-36.5); MEAN CORPUSCULAR VOLUME 100.7 fl (80.0-96.0); MONO # 0.4 10^3/uL (0.0-0.8); MONO % 3.7 % (2.0-8.0); NEUTROPHILS # 8.1 10^3/uL (1.5-8.5); NEUTROPHILS % 82.7 % (36.0-66.0); PLATELET COUNT, AUTOMATED 197 10^3/uL (150-450); WHITE BLOOD COUNT 9.8 10^3/uL (4.0-10.0)
[2022-07-12 05:20] LABS: CALCIUM LEVEL 8.3 MG/DL (8.8-10.2); CREATININE FOR GFR 1.76 MG/DL (0.70-1.30); GLOMERULAR FILTRATION RATE 39.6 (>35); POTASSIUM SERUM 4.6 MEQ/L (3.5-5.1)
[2022-07-12] MEDS: INSULIN LISPRO (NovoLOG) PER UNIT SC SCH ×3 (05:36→18:03)
[2022-07-12 06:03] LABS: ABG BASE EXCESS 8.2 (-2.0-2.0); ABG HCO3 30.1 MEQ/L (22.0-26.0); ABG O2 SATURATION 97.5 % (95.0-99.0); ABG PARTIAL PRESSURE CO2 31.8 mmHg (35.0-45.0); ABG PARTIAL PRESSURE O2 78.9 mmHg (75.0-100.0); ABG TOTAL CO2 31.1 MEQ/L (23.0-31.0); ABG pH (ARTERIAL) 7.594 UNITS (7.350-7.450)
[2022-07-12] MEDS: MIDAZOLAM 100MG/100ML-0.9%NACL 100 MG in IV 1 EA IV SCH (07:04)
[2022-07-12] MEDS: IPRATROPIUM 0.5MG/ALBUTEROL 2.5MG INH SOL UD 3ML (DUONEB) NEB SCH ×4 (07:15→19:22)
[2022-07-12] MEDS ORDERED: CLOPIDOGREL 75 MG TAB GT SCH (09:00)
[2022-07-12] MEDS ORDERED: HEPARIN SOD (PORCINE) 5000UNITS/ML 1ML VIAL/SYRINGE SC SCH (09:00)
[2022-07-12] MEDS ORDERED: APIXABAN 5 MG TAB (ELIQUIS) GT SCH (09:00)
[2022-07-12] MEDS: CHLORHEXIDINE GLUCONATE 0.12 % 15ML UDC (PERIDEX ORAL RINSE) MT SCH ×2 (10:20→21:18)
[2022-07-12] MEDS: PANTOPRAZOLE 40MG VIAL IV SCH (10:20)
[2022-07-12] MEDS: AMIODARONE 200 MG TAB (PACERONE) GT SCH (10:21)
[2022-07-12] MEDS ORDERED: NS 500 ML IV ONE (16:40)
[2022-07-12 17:07] LABS: HEMATOCRIT 22.4 % (42.0-52.0); HEMOGLOBIN 7.4 g/dl (13.5-17.5); PLATELET COUNT, AUTOMATED 180 10^3/uL (150-450)
[2022-07-12 17:21] LABS: PARTIAL THROMBOPLASTIN TIME 35.4 SECONDS (24.8-34.2)
[2022-07-12 17:24] LABS: D-DIMER QUANT 741.18 ng/ml (<500)
[2022-07-12 17:34] LABS: INR 2.31; PROTHROMBIN TIME 25.8 SECONDS (12.5-14.5)
[2022-07-13] VITALS (82 sets, daily range): BP systolic 72–142; BP diastolic 37–105
[2022-07-13] MEDS: INSULIN LISPRO (NovoLOG) PER UNIT SC SCH ×4 (00:05→18:09)
[2022-07-13 00:29] LABS: HEMOGLOBIN 8.5 g/dl (13.5-17.5)
[2022-07-13] MEDS: methylPREDNISolone 40MG 1ML VIAL IV SCH ×3 (03:12→18:09)
[2022-07-13] MEDS: PIPERACILLIN/TAZOBACTAM SOD 3.375 GM in D5W MINI-BAG PLUS 50 ML IV SCH ×4 (03:12→20:31)
[2022-07-13 05:09] LABS: HEMATOCRIT 23.4 % (42.0-52.0); HEMOGLOBIN 8.1 g/dl (13.5-17.5); MEAN CORPUSCULAR HEMOGLOBIN 32.4 pg (27.0-33.0); MEAN CORPUSCULAR HGB CONC 34.6 g/dl (32.0-36.5); MEAN CORPUSCULAR VOLUME 93.6 fl (80.0-96.0); PLATELET COUNT, AUTOMATED 163 10^3/uL (150-450); WHITE BLOOD COUNT 7.7 10^3/uL (4.0-10.0)
[2022-07-13 05:32] LABS: ABG BASE EXCESS 5.7 (-2.0-2.0); ABG HCO3 27.6 MEQ/L (22.0-26.0); ABG O2 SATURATION 95.6 % (95.0-99.0); ABG STANDARD HCO3 29.6 MEQ/L (22.0-26.0); ABG TOTAL CO2 28.5 MEQ/L (23.0-31.0); ABG pH (ARTERIAL) 7.582 UNITS (7.350-7.450)
[2022-07-13] MEDS: NOREPINEPHRINE 4MG IN D5 250ML 4 MG in IV 1 EA IV SCH ×6 (05:45→18:08)
[2022-07-13 05:50] LABS: ALBUMIN 2.2 GM/DL (3.2-5.2); BILIRUBIN,TOTAL 1.2 MG/DL (0.2-1.0); CALCIUM LEVEL 7.6 MG/DL (8.8-10.2); CREATININE FOR GFR 2.33 MG/DL (0.70-1.30); GLOMERULAR FILTRATION RATE 28.6 (>35); POTASSIUM SERUM 4.1 MEQ/L (3.5-5.1); TOTAL PROTEIN 4.2 GM/DL (6.4-8.2)
[2022-07-13] MEDS ORDERED: NS 1,000 ML IV SCH (07:55)
[2022-07-13] MEDS: IPRATROPIUM 0.5MG/ALBUTEROL 2.5MG INH SOL UD 3ML (DUONEB) NEB SCH ×4 (08:09→20:09)
[2022-07-13] MEDS: CHLORHEXIDINE GLUCONATE 0.12 % 15ML UDC (PERIDEX ORAL RINSE) MT SCH ×2 (09:13→20:31)
[2022-07-13] MEDS: PANTOPRAZOLE 40MG VIAL IV SCH (09:13)
[2022-07-13] MEDS: AMIODARONE 200 MG TAB (PACERONE) GT SCH (09:14)
[2022-07-13] MEDS: MIDAZOLAM INJ 2MG/2ML VIAL (J2250 PER 1MG) IV PRN ×3 (20:42→23:58)
[2022-07-14] VITALS (44 sets, daily range): BP systolic 88–137; BP diastolic 47–66
[2022-07-14] MEDS: INSULIN LISPRO (NovoLOG) PER UNIT SC SCH ×3 (00:10→12:00)
[2022-07-14] MEDS: MIDAZOLAM INJ 2MG/2ML VIAL (J2250 PER 1MG) IV PRN ×2 (02:06→04:14)
[2022-07-14] MEDS: methylPREDNISolone 40MG 1ML VIAL IV SCH (02:06)
[2022-07-14] MEDS: PIPERACILLIN/TAZOBACTAM SOD 3.375 GM in D5W MINI-BAG PLUS 50 ML IV SCH ×2 (02:06→09:17)
[2022-07-14 05:04] LABS: HEMATOCRIT 23.4 % (42.0-52.0); HEMOGLOBIN 7.8 g/dl (13.5-17.5); MEAN CORPUSCULAR HEMOGLOBIN 32.1 pg (27.0-33.0); MEAN CORPUSCULAR HGB CONC 33.3 g/dl (32.0-36.5); MEAN CORPUSCULAR VOLUME 96.3 fl (80.0-96.0); PLATELET COUNT, AUTOMATED 159 10^3/uL (150-450); RED BLOOD COUNT 2.43 10^6/uL (4.30-6.10); WHITE BLOOD COUNT 6.5 10^3/uL (4.0-10.0)
[2022-07-14 05:47] LABS: ABG O2 SATURATION 94.1 % (95.0-99.0); ABG PARTIAL PRESSURE CO2 35.1 mmHg (35.0-45.0); ABG PARTIAL PRESSURE O2 69.3 mmHg (75.0-100.0); ABG STANDARD HCO3 29.9 MEQ/L (22.0-26.0); ABG TOTAL CO2 30.1 MEQ/L (23.0-31.0); ABG pH (ARTERIAL) 7.535 UNITS (7.350-7.450)
[2022-07-14 06:01] LABS: ALBUMIN 2.2 GM/DL (3.2-5.2); BILIRUBIN,TOTAL 0.7 MG/DL (0.2-1.0); CALCIUM LEVEL 7.6 MG/DL (8.8-10.2); CREATININE FOR GFR 2.27 MG/DL (0.70-1.30); GLOMERULAR FILTRATION RATE 29.5 (>35); POTASSIUM SERUM 3.7 MEQ/L (3.5-5.1); TOTAL PROTEIN 4.4 GM/DL (6.4-8.2)
[2022-07-14] MEDS: IPRATROPIUM 0.5MG/ALBUTEROL 2.5MG INH SOL UD 3ML (DUONEB) NEB SCH ×4 (07:17→20:00)
[2022-07-14] MEDS: NOREPINEPHRINE 4MG IN D5 250ML 4 MG in IV 1 EA IV SCH ×4 (07:32→08:21)
[2022-07-14] MEDS: PANTOPRAZOLE 40MG VIAL IV SCH (09:17)
[2022-07-14] MEDS: CHLORHEXIDINE GLUCONATE 0.12 % 15ML UDC (PERIDEX ORAL RINSE) MT SCH (09:17)
[2022-07-14] MEDS: AMIODARONE 200 MG TAB (PACERONE) GT SCH (09:18)
[2022-07-14] MEDS ORDERED: FUROSEMIDE 100MG/10ML VIAL (J1940) IV ONE (09:40)
[2022-07-14 12:28] LABS: ABG BASE EXCESS 4.7 (-2.0-2.0); ABG HCO3 29.7 MEQ/L (22.0-26.0); ABG O2 SATURATION 98.5 % (95.0-99.0); ABG PARTIAL PRESSURE CO2 46.7 mmHg (35.0-45.0); ABG PARTIAL PRESSURE O2 135.3 mmHg (75.0-100.0); ABG STANDARD HCO3 28.8 MEQ/L (22.0-26.0); ABG TOTAL CO2 31.2 MEQ/L (23.0-31.0); ABG pH (ARTERIAL) 7.422 UNITS (7.350-7.450)
[2022-07-14] MEDS ORDERED: methylPREDNISolone 40MG 1ML VIAL IV SCH (15:00)
[2022-07-14] MEDS ORDERED: cefTRIAXone SOD 1 GM in D5W MINI-BAG PLUS 50 ML IV SCH (15:00)
[2022-07-14] MEDS ORDERED: LORazepam 2 MG/ML VIAL IV PRN (15:30)
[2022-07-14] MEDS ORDERED: HYOSCYAMINE SULFATE 0.125 MG SUBL TABLET PO PRN (15:30)
[2022-07-14] MEDS ORDERED: SCOPOLAMINE 1MG TRANSDERMAL PATCH TOP PRN (15:30)
[2022-07-14] MEDS: MORPHINE 2 MG/ML 1ML VIAL IV SCH ×4 (16:00→22:25)
[2022-07-15] MEDS: MORPHINE 2 MG/ML 1ML VIAL IV SCH
== END 2022-07-15 01:35 | disposition expired | DRG 871 ==
LOC: EDBD 18:00 → M ED 18:00 → M ED INP 20:21 → ENRESERV 21:00 → M ICU 21:01
PROVIDERS: ADMIT Internal Medicine; ATTEND Internal Medicine
PROC: 5A1945Z Respiratory Ventilation, 24-96 Consecutive Hours (ICD-10-PCS; principal; 2022-07-11)
PROC: 30233N1 Transfusion of Nonautologous Red Blood Cells into Peripheral Vein, Percutaneous Approach (ICD-10-PCS; 2022-07-12)
DX: A41.9 Sepsis, unspecified organism (principal); J96.01 Acute respiratory failure with hypoxia; R65.21 Severe sepsis with septic shock; G93.41 Metabolic encephalopathy; J96.02 Acute respiratory failure with hypercapnia; J15.0 Pneumonia due to Klebsiella pneumoniae; E87.29 Other acidosis; N17.9 Acute kidney failure, unspecified; J98.11 Atelectasis; J90 Pleural effusion, not elsewhere classified; J44.1 Chronic obstructive pulmonary disease with (acute) exacerbation; E46 Unspecified protein-calorie malnutrition; I50.42 Chronic combined systolic (congestive) and diastolic (congestive) heart failure; N18.30 Chronic kidney disease, stage 3 unspecified; E11.22 Type 2 diabetes mellitus with diabetic chronic kidney disease; D64.9 Anemia, unspecified; I25.10 Atherosclerotic heart disease of native coronary artery without angina pectoris; K21.9 Gastro-esophageal reflux disease without esophagitis; Z79.899 Other long term (current) drug therapy; Z88.8 Allergy status to other drugs, medicaments and biological substances; E78.5 Hyperlipidemia, unspecified; G47.33 Obstructive sleep apnea (adult) (pediatric); Z95.1 Presence of aortocoronary bypass graft; Z51.5 Encounter for palliative care; Z66 Do not resuscitate